=== PATIENT | male | born 1935 | race Caucasian/White ===

== ENCOUNTER 2021-12-08 12:13 | Inpatient (IN) | payer MEDICARE ==
[2021-12-08] VITALS (15 sets, daily range): BP systolic 50–131; BP diastolic 24–59
[~2021-12-08] VITALS: Ht 177.8 cm; Wt 113.4 kg
[~2021-12-08 12:13] MED LIST: AMLO-187 PO; ASPI-886 PO; ATOR40TA59 PO; CLOP75TA PO; GLIP10TA13 PO; LISI10TA16 PO; LISI1TAB37 PO; MELA3CAP2 PO; METF10007 PO; METO-247 PO; OMEG-152 PO; PIOG45TA40 PO
[2021-12-08 12:26] LABS: BASE EXCESS ABG 2 mmol/L (-3-3); CORRECTED PCO2 ABG 100 mmHg; CORRECTED PH ABG 7.15; CORRECTED PO2 ABG 116 mmHg; HCO3 ABG 33 mmol/L (21-28); PO2 ABG 105 mmHg (65-108); SAT O2 ABG 96 % (92-99)
[2021-12-08 12:28] LABS: FIO2 ABG 100/ 15L NRB; PCO2 ABG 92 mmHg (35-46)
[2021-12-08] MEDS ORDERED: IV NORMAL SALINE 1000ML BAG 1,000 ML IV ONE ×2 (12:30→16:30)
[2021-12-08] MEDS ORDERED: ACETAMINOPHEN 650 MG SUPP.RECT. PR ONE (12:30)
--- NOTE | 2021-12-08 12:36 | ED.ADGEN ---
Past Medical History Additional Past Medical Histor: patient unable to state, no paperwork from facility Past Surgical History: Other Additional Past Surgical Histo: unknown Smoking Status: Unknown if ever smoked Alcohol Use: None General Adult EDM: Chief Complaint: DYSPNEA/RESPIRATORY DISTRESS HPI: HPI: Patient is a 86 year old male coming in from nursing facility for altered mental status and shortness of breath. Patient was found to be 84% on nasal cannula. Patient was placed on nonrebreather with improvement of oxygen saturation 90% by EMS. Patient has a history of recent hospitalization for pneumonia. Per records review he is getting cefazolin through a PICC line. Report states that patient has had increasing altered mental status over the past week and family is currently evaluating the possibility of putting him on hospice. Patient is a DNR/DNI. History limited to reports provided due to patient's mental status Review of Systems: Review of Systems: All other systems within normal limits except for as noted in the HPI Current Medications: Current Medications Medications (Trade) Dose Ordered Sig/Argenis Start Time Stop Time Status Last Admin Dose Admin Acetaminophen (Tylenol Supp) 650 mg 1X ONCE 12/08/21 12:30 12/08/21 12:31 DC 12/08/21 12:40 650 MG Acetaminophen (Tylenol) 650 mg PRN Q4HRS PRN 12/08/21 13:45 12/09/21 13:44 Cefepime HCl (Maxipime) 2 gm 1X ONCE 12/08/21 13:30 12/08/21 13:35 DC Heparin Sodium (Porcine) (Heparin Sodium) 2,500 unit PRN Q6HRS PRN 12/08/21 13:45 Heparin Sodium/ Dextrose 250 ml @ 12 mls/hr CONT PRN 12/08/21 13:45 Morphine Sulfate (Morphine Sulfate) 4 mg PRN Q2HR PRN 12/08/21 13:45 12/09/21 13:44 Ondansetron HCl (Zofran) 4 mg PRN Q8HRS PRN 12/08/21 13:45 12/09/21 13:44 Sodium Chloride 1,000 ml @ 75 mls/hr [id number] 12/08/21 13:45 12/09/21 13:44 Vancomycin HCl 2 gm/Sodium Chloride 500 ml @ 250 mls/hr 1X ONCE 12/08/21 13:30 12/08/21 15:29 Allergies: Allergies: Allergies Coded Allergies Type Severity Reaction Last Updated Verified No Known Drug Allergies 11/02/21 No Physical Exam: PE: Constitutional: Well developed, well nourished, ill-appearing HENT: Normocephalic, atraumatic, bilateral external ears normal, nose normal. [] Eyes: PERRLA, conjunctiva normal, no discharge. [] Neck: No rigidity, supple, no stridor. [] Cardiovascular: Regular rate and rhythm, brisk cap refill [] Lungs & Thorax: Non labored symmetric respirations, shallow symmetric respirations, rhonchi and crackles bilaterally, worse on the right Abdomen: Soft, nondistended. Skin: Warm, dry, no erythema, no rash. [] Back: Unremarkable Extremities: No deformities, range of motion grossly intact, no lower extremity edema [] Neurologic: Obtunded Psychologic: Unable to assess Current Patient Data: Labs: Laboratory Tests Test 12/08/21 12:27 12/08/21 12:30 O2 Saturation 96 % (92-99) Arterial Blood pH 7.17 (7.35-7.45) *L Arterial Blood pH (Temp corrected) 7.15 Arterial Blood pCO2 at Patient Temp 92 mmHg (35-46) *H Arterial Blood pCO2 (Temp correct) 100 mmHg Arterial Blood pO2 at Patient Temp 105 mmHg (65-108) Arterial Blood pO2 (Temp corrected) 116 mmHg Arterial Blood HCO3 33 mmol/L (21-28) H Arterial Blood Base Excess 2 mmol/L (-3-3) FiO2 100/ 15l nrb White Blood Count 10.8 x10^3/uL (4.0-11.0) Red Blood Count 3.20 x10^6/uL (4.30-5.70) L Hemoglobin 9.9 g/dL (13.0-17.5) L Hematocrit 31.3 % (39.0-53.0) L Mean Corpuscular Volume 98 fL (79-100) Mean Corpuscular Hemoglobin 31 pg (25-35) Mean Corpuscular Hemoglobin Concent 32 g/dL (31-37) Red Cell Distribution Width 17.8 % (11.5-14.5) H Platelet Count 241 x10^3/uL (140-400) Neutrophils (%) (Auto) 87 % (31-73) H Lymphocytes (%) (Auto) 8 % (24-48) L Monocytes (%) (Auto) 4 % (0-9) Eosinophils (%) (Auto) 0 % (0-3) Basophils (%) (Auto) 1 % (0-3) Neutrophils # (Auto) 9.4 x10^3/uL (1.8-7.7) H Lymphocytes # (Auto) 0.9 x10^3/uL (1.0-4.8) L Monocytes # (Auto) 0.4 x10^3/uL (0.0-1.1) Eosinophils # (Auto) 0.0 x10^3/uL (0.0-0.7) Basophils # (Auto) 0.1 x10^3/uL (0.0-0.2) Platelet Estimate Pending Sodium Level 165 mmol/L (136-145) *H Potassium Level 3.8 mmol/L (3.5-5.1) Chloride Level 120 mmol/L (98-107) H Carbon Dioxide Level 37 mmol/L (21-32) H Anion Gap 8 (6-14) Blood Urea Nitrogen 47 mg/dL (8-26) H Creatinine 0.9 mg/dL (0.7-1.3) Estimated GFR (Cockcroft-Gault) 79.6 BUN/Creatinine Ratio 52 (6-20) H Glucose Level 160 mg/dL (70-99) H Lactic Acid Level 1.3 mmol/L (0.4-2.0) Calcium Level 7.8 mg/dL (8.5-10.1) L Phosphorus Level 4.1 mg/dL (2.6-4.7) Magnesium Level 2.3 mg/dL (1.8-2.4) Total Bilirubin 0.4 mg/dL (0.2-1.0) Aspartate Amino Transferase (AST) 33 U/L (15-37) Alanine Aminotransferase (ALT) 10 U/L (16-63) L Alkaline Phosphatase 130 U/L (46-116) H Troponin I High Sensitivity 1199 ng/L (4-75) H NA-Asx-X-Type Natriuretic Peptide 21622 pg/mL (0-449) H Total Protein 6.0 g/dL (6.4-8.2) L Albumin 1.7 g/dL (3.4-5.0) L Albumin/Globulin Ratio 0.4 (1.0-1.7) L Laboratory Tests 12/08/21 12:30 Laboratory Tests 12/08/21 12:30 Vital Signs: Vital Signs Date Time Temp Pulse Resp B/P (MAP) Pulse Ox O2 Delivery O2 Flow Rate FiO2 12/08/21 12:24 98 BiPAP/CPAP 12/08/21 12:13 100.7 129 32 154/66 (95) 100.7 EKG: EKG: Sinus rhythm, heart rate 130 bpm, right bundle and fascicular blocks, no STEMI criteria met> Significant change from EKG dated 11/05/21 Heart Score: C/O Chest Pain: N/A HEART Score for Chest Pain: HEART Score for Chest Pain Response (Comments) Value History Slighlty/Non-Suspicious 0 ECG Nonspecific Repolarizatio 1 Age > 65 2 Risk Factors >3 Risk Factors or Hx CAD 2 Troponin >3 x Normal Limit 2 Total 7 Risk Factors: Risk Factors: DM, Current or recent (<one month) smoker, HTN, HLP, family history of CAD, obesity. Risk Scores: Score 0 - 3: 2.5% MACE over next 6 weeks - Discharge Home Score 4 - 6: 20.3% MACE over next 6 weeks - Admit for Clinical Observation Score 7 - 10: 72.7% MACE over next 6 weeks - Early Invasive Strategies Radiology/Procedures: Radiology/Procedures: [facility] [address] [place] [address] IMAGING REPORT Signed PATIENT: RAGHAV PAIZ ACCOUNT: [id number] : 1935 LOCATION: ER AGE: 86 SEX: M EXAM STATUS: PRE ER ORD. PHYSICIAN: MARTINE JAVED MD REASON: dypnea, h/o pna PROCEDURE: CHEST AP ONLY EXAMINATION: Chest radiograph. VIEWS: 2 images single AP view of the chest COMPARISON: Chest radiograph and CT from 11/02/2021 INDICATION:86 years, Male, history of pneumonia. FINDINGS: Patient is rotated to the right. Right upper extremity PICC with tip terminating in the SVC. Stable cardiomediastinal silhouette. New hazy right perihilar and basilar opacity with associated air bronchograms. Left basilar opacity is dec reased from prior. No pneumothorax. Bilateral effusions. Similar prominent calcified granulomas within the right hilum. IMPRESSION: 1. Right upper extremity PICC its normal position. 2. New right perihilar and basilar opacities concerning for pneumonia with small layering pleural effusion. 3. left basilar opacity may represent atelectasis or infiltrate with small effusion. Electronically signed by: Selina Vaughn DO (12/08/2021 1:05 PM) [id number] DICTATED and SIGNED BY: SELINA VAUGHN DO DATE: 12/08/21 [id number] [] Course & Med Decision Making: Course & Med Decision Making Pertinent Labs and Imaging studies reviewed. (See chart for details) Patient placed on BiPAP due to poor inspiratory effort and altered mental status. ABG shows a CO2 of 99.5. Has tachycardic with a temperature 101. Patient already on PICC line antibiotics but will cover broad-spectrum for nosocomial acquired pneumonia. NSTEMI likely type II ischemia. Antibiotics and heparin initiate emergency department. Cardiology consulted and admitted to patient's primary care provider Dr. Huber Total critical care time: 45 The time involved in the performance of separately reportable/billable procedures was not counted toward critical care time. Due to a high probability of clinically significant, life-threatening deterioration the patient required a high level of care to intervene emergently and I personally spent this critical time directly and personally managing the patient. The critical care time included obtaining a history, examination of the patient, assessment of vital signs, ordering and review of studies, arran ging urgent treatment with development of a management plan, evaluation of patient's response to treatment, frequent reassessment, and discussions with other providers and/or family members. [] Dragon Disclaimer: Dragon Disclaimer: This electronic medical record was generated, in whole or in part, using a voice recognition dictation system. Departure Departure Impression: Primary Impression: Hypercapnia Additional Impressions: Encephalopathy NSTEMI (non-ST elevated myocardial infarction) Pneumonia Dehydration CHF (congestive heart failure) Disposition: ADMITTED INPATIENT Admitting Physician: Madi. Calvert Condition: CRITICAL Referrals: DAJA HUBER MD (PCP) Problem Qualifiers MARTINE JAVED MD Dec 08, 2021 12:36
[2021-12-08 13:00] LABS: BASO # 0.1 x10^3/uL (0.0-0.2); BASO % 1 % (0-3); EOS % 0 % (0-3); HEMATOCRIT 31.3 % (39.0-53.0); HEMOGLOBIN 9.9 g/dL (13.0-17.5); LYMPH # 0.9 x10^3/uL (1.0-4.8); LYMPH % 8 % (24-48); MEAN CORPUSCULAR HEMOGLOBIN 31 pg (25-35); MEAN CORPUSCULAR HGB CONC 32 g/dL (31-37); MEAN CORPUSCULAR VOLUME 98 fL (79-100); MONO # 0.4 x10^3/uL (0.0-1.1); MONO % 4 % (0-9); NEUT # 9.4 x10^3/uL (1.8-7.7); NEUT % 87 % (31-73); PLATELET COUNT 241 x10^3/uL (140-400); RED CELL DISTRIBUTION WIDTH 17.8 % (11.5-14.5); WHITE BLOOD COUNT 10.8 x10^3/uL (4.0-11.0)
--- NOTE | 2021-12-08 13:08 | RAD ---
EXAMINATION: Chest radiograph. VIEWS: 2 images single AP view of the chest COMPARISON: Chest radiograph and CT from 11/02/2021 INDICATION:86 years, Male, history of pneumonia. FINDINGS: Patient is rotated to the right. Right upper extremity PICC with tip terminating in the SVC. Stable c ardiomediastinal silhouette. New hazy right perihilar and basilar opacity with associated air broncho grams. Left basilar opacity is decreased from prior. No pneumothorax. Bilateral effusions. Similar pr ominent calcified granulomas within the right hilum. IMPRESSION: 1. Right upper extremity PICC its normal position. 2. New right perihilar and basilar opacities concerning for pneumonia with small layering pleural eff usion. 3. left basilar opacity may represent atelectasis or infiltrate with small effusion. Electronically signed by: Mj Vaughn DO (12/08/2021 1:05 PM) [id number]
[2021-12-08] MEDS ORDERED: VANCOMYCIN 2 GM in IV NORMAL SALINE 500ML BAG 500 ML IV ONE (13:30)
[2021-12-08] MEDS ORDERED: CEFEPIME HCL IV Push 2 GM VIAL. IVP ONE (13:30)
[2021-12-08 13:31] LABS: ALBUMIN 1.7 g/dL (3.4-5.0); ALBUMIN/GLOBULIN RATIO 0.4 (1.0-1.7); CALCIUM 7.8 mg/dL (8.5-10.1); CREATININE 0.9 mg/dL (0.7-1.3); GFR 79.6; MAGNESIUM 2.3 mg/dL (1.8-2.4); PHOSPHORUS 4.1 mg/dL (2.6-4.7); POTASSIUM 3.8 mmol/L (3.5-5.1); TOTAL BILIRUBIN 0.4 mg/dL (0.2-1.0)
[2021-12-08] MEDS ORDERED: HEPARIN for IV BOLUS 10,000 UNIT/10 ML VIAL. IV ONE (13:45)
[2021-12-08] MEDS ORDERED: ACETAMINOPHEN 325 MG TABLET. PO PRN (13:45)
[2021-12-08] MEDS ORDERED: MORPHINE SULFATE 4 MG/ML INJ. IVP PRN (13:45)
[2021-12-08] MEDS ORDERED: ONDANSETRON PF 4 MG/2 ML VIAL. IVP PRN (13:45)
[2021-12-08] MEDS ORDERED: HEPARIN for IV BOLUS 10,000 UNIT/10 ML VIAL. IV PRN (13:45)
[2021-12-08 14:04] LABS: BILIRUBIN,URINE NEGATIVE (NEG); CLARITY,URINE CLOUDY; COLOR,URINE AMBER; NITRITE,URINE NEGATIVE (NEG); PH,URINE 5.5 (<5.0-8.0); PROTEIN,URINE 100 mg/dL (NEG-TRACE); UROBILINOGEN,URINE 0.2 mg/dL (0.2 mg/dL)
[2021-12-08 14:11] LABS: AMPHETAMINE/METHAMPHETAMINE NEG (NEG); BARBITURATES NEG (NEG); BENZODIAZEPINES NEG (NEG); CANNABINOIDS NEG (NEG); COCAINE NEG (NEG); METHADONE NEG (NEG); OPIATES NEG (NEG); PHENCYCLIDINE NEG (NEG)
[2021-12-08 14:17] LABS: GRANULAR CASTS,URINE MANY /HPF; HYALINE CASTS, URINE FEW /HPF
[2021-12-08] MEDS: IV NORMAL SALINE 1000ML BAG 1,000 ML IV SCH (14:18)
[2021-12-08 14:20] LABS: BACTERIA,URINE FEW /HPF (0-FEW)
[2021-12-08 14:21] LABS: AMORPHOUS SEDIMENT,UR PRESENT /HPF
[2021-12-08 14:28] LABS: INFLUENZA A PATIENT NEGATIVE (NEGATIVE); INFLUENZA B PATIENT NEGATIVE (NEGATIVE)
[2021-12-08] MEDS: HEPARIN 25,000UTS/250ML PREMIX 250 ML IV PRN (14:30)
--- NOTE | 2021-12-08 14:52 | PDOC2 ---
CONSULT Date of Consult Date of Consult DATE: 12/08/21 TIME: 14:51 Reason for Consult Reason for Consult: Non-STEMI Referring Physician Referring Physician: Dr. Garza Identification/Chief Complaint Chief Complaint Shortness of breath Source Source: Chart review History of Present Illness Reason for Visit: 86-year-old male has been transferred from nursing facility with mental status changes and shortness of breath. He was found to be hypoxic and placed on BiPAP. He was recently treated at [facility] for pneumonia. He was diagnosed with new onset paroxysmal atrial fibrillation at that time and was recommended outpatient event monitor, that he is currently wearing. He also underwent BARBARA at that time for sepsis to rule out endocarditis that showed normal LV systolic function without any intracardiac vegetation. According to family, he has been having progressive mental status changes and they were considering hospice. Per report , he denied any chest pain or syncope. Past Medical History Cardiovascular: AFIB, HTN CENTRAL NERVOUS SYSTEM: CVA, Dementia Hepatobiliary: No pertinent hx Musculoskeletal: Osteoarthritis Endocrine: Diabetes Past Surgical History Past Surgical History: Other Family History Family History: Family History Unknown Social History ALCOHOL: none Lives: [facility] Current Problem List Problem List Problems Medical Problems: (1) CHF (congestive heart failure) Status: Acute (2) Dehydration Status: Acute (3) Encephalopathy Status: Acute (4) Hypercapnia Status: Acute (5) NSTEMI (non-ST elevated myocardial infarction) Status: Acute (6) Pneumonia Status: Acute Current Medications Current Medications Current Medications Sodium Chloride 1,000 ml @ 1,000 mls/hr 1X ONCE IV Last administered on 12/08/21at 12:40; Start 12/08/21 at 12:30; Stop 12/08/21 at 13:29; Status DC Acetaminophen (Tylenol Supp) 650 mg 1X ONCE DC Last administered on 12/08/21at 12:40; Start 12/08/21 at 12:30; Stop 12/08/21 at 12:31; Status DC Vancomycin HCl 2 gm/Sodium Chloride 500 ml @ 250 mls/hr 1X ONCE IV Last administered on 12/08/21at 14:23; Start 12/08/21 at 13:30; Stop 12/08/21 at 15:29 Cefepime HCl (Maxipime) 2 gm 1X ONCE IVP Last administered on 12/08/21at 14:08; Start 12/08/21 at 13:30; Stop 12/08/21 at 13:35; Status DC Heparin Sodium (Porcine) (Heparin Sodium) 4,000 unit 1X ONCE IV Last administered on 12/08/21at 14:26; Start 12/08/21 at 13:45; Stop 12/08/21 at 13:53; Status DC Heparin Sodium/ Dextrose 250 ml @ 12 mls/hr CONT PRN IV PER PROTOCOL Last administered on 12/08/21at 14:30; Start 12/08/21 at 13:45 Heparin Sodium (Porcine) (Heparin Sodium) 2,500 unit PRN Q6HRS PRN IV FOR UFH LEVEL LESS THAN 0.2; Start 12/08/21 at 13:45 Ondansetron HCl (Zofran) 4 mg PRN Q8HRS PRN IVP NAUSEA/VOMITING; Start 12/08/21 at 13:45; Stop 12/09/21 at 13:44 Morphine Sulfate (Morphine Sulfate) 4 mg PRN Q2HR PRN IVP PAIN; Start 12/08/21 at 13:45; Stop 12/09/21 at 13:44 Sodium Chloride 1,000 ml @ 75 mls/hr [id number] IV Last administered on 12/08/21at 14:18; Start 12/08/21 at 13:45; Stop 12/09/21 at 13:44 Acetaminophen (Tylenol) 650 mg PRN Q4HRS PRN PO FEVER > 100.3'F; Start 12/08/21 at 13:45; Stop 12/09/21 at 13:44 Active Scripts Active Metformin Hcl 1,000 Mg Tablet 1,000 Mg PO [id number] 30 Days Aspirin Ec (Aspirin) 81 Mg Tablet.dr 81 Mg PO [id number] 30 Days Lisinopril 10 Mg Tablet 10 Mg PO DAILY 30 Days Reported Actos (Pioglitazone Hcl) 45 Mg Tablet 45 Mg PO QHS Amlodipine Besylate 10 Mg Tablet 10 Mg PO DAILY Metoprolol Succinate ( Xl ) (Metoprolol Succinate) 100 Mg Tab.er.24h 100 Mg PO DAILY Melatonin 3 Mg Capsule 3 Mg PO QHS Glipizide 10 Mg Tablet 20 Mg PO DAILY Fish Oil 1,000 Mg Softgel ([place]-3/Dha/Epa/Fish Oil) 1 Each Capsule 1 Each PO DAILY Atorvastatin Calcium 40 Mg Tablet 40 Mg PO HS Allergies Allergies: Coded Allergies: No Known Drug Allergies (Unverified , 11/02/21) ROS Review of System Full review of systems cannot be obtained since patient is on BiPAP. Physical Exam General: mild distress, Other (On BiPAP) HEENT: Atraumatic Lungs: Other (Bilateral scattered crepitations) Heart: Regular rate Abdomen: Soft Extremities: No edema Vitals VITALS Vital Signs Date Time Temp Pulse Resp B/P (MAP) Pulse Ox O2 Delivery O2 Flow Rate FiO2 12/08/21 12:24 98 BiPAP/CPAP 12/08/21 12:13 100.7 129 32 154/66 (95) 100.7 Labs Labs Laboratory Tests Test 12/08/21 12:27 12/08/21 12:30 12/08/21 13:40 O2 Saturation 96 % (92-99) Arterial Blood pH 7.17 (7.35-7.45) Arterial Blood pH (Temp corrected) 7.15 Arterial Blood pCO2 at Patient Temp 92 mmHg (35-46) Arterial Blood pCO2 (Temp correct) 100 mmHg Arterial Blood pO2 at Patient Temp 105 mmHg (65-108) Arterial Blood pO2 (Temp corrected) 116 mmHg Arterial Blood HCO3 33 mmol/L (21-28) Arterial Blood Base Excess 2 mmol/L (-3-3) FiO2 100/ 15l nrb White Blood Count 10.8 x10^3/uL (4.0-11.0) Red Blood Count 3.20 x10^6/uL (4.30-5.70) Hemoglobin 9.9 g/dL (13.0-17.5) Hematocrit 31.3 % (39.0-53.0) Mean Corpuscular Volume 98 fL (79-100) Mean Corpuscular Hemoglobin 31 pg (25-35) Mean Corpuscular Hemoglobin Concent 32 g/dL (31-37) Red Cell Distribution Width 17.8 % (11.5-14.5) Platelet Count 241 x10^3/uL (140-400) Neutrophils (%) (Auto) 87 % (31-73) Lymphocytes (%) (Auto) 8 % (24-48) Monocytes (%) (Auto) 4 % (0-9) Eosinophils (%) (Auto) 0 % (0-3) Basophils (%) (Auto) 1 % (0-3) Neutrophils # (Auto) 9.4 x10^3/uL (1.8-7.7) Lymphocytes # (Auto) 0.9 x10^3/uL (1.0-4.8) Monocytes # (Auto) 0.4 x10^3/uL (0.0-1.1) Eosinophils # (Auto) 0.0 x10^3/uL (0.0-0.7) Basophils # (Auto) 0.1 x10^3/uL (0.0-0.2) Sodium Level 165 mmol/L (136-145) Potassium Level 3.8 mmol/L (3.5-5.1) Chloride Level 120 mmol/L (98-107) Carbon Dioxide Level 37 mmol/L (21-32) Anion Gap 8 (6-14) Blood Urea Nitrogen 47 mg/dL (8-26) Creatinine 0.9 mg/dL (0.7-1.3) Estimated GFR (Cockcroft-Gault) 79.6 BUN/Creatinine Ratio 52 (6-20) Glucose Level 160 mg/dL (70-99) Lactic Acid Level 1.3 mmol/L (0.4-2.0) Calcium Level 7.8 mg/dL (8.5-10.1) Phosphorus Level 4.1 mg/dL (2.6-4.7) Magnesium Level 2.3 mg/dL (1.8-2.4) Total Bilirubin 0.4 mg/dL (0.2-1.0) Aspartate Amino Transf (AST/SGOT) 33 U/L (15-37) Alanine Aminotransferase (ALT/SGPT) 10 U/L (16-63) Alkaline Phosphatase 130 U/L (46-116) Troponin I High Sensitivity 1199 ng/L (4-75) MP-Ejh-A-Type Natriuretic Peptide 42669 pg/mL (0-449) Total Protein 6.0 g/dL (6.4-8.2) Albumin 1.7 g/dL (3.4-5.0) Albumin/Globulin Ratio 0.4 (1.0-1.7) Urine Color Julianna Urine Clarity Cloudy Urine pH 5.5 (<5.0-8.0) Urine Specific [place] 1.025 (1.000-1.030) Urine Protein 100 mg/dL (NEG-TRACE) Urine Glucose (UA) Negative mg/dL (NEG) Urine Ketones (Stick) Trace mg/dL (NEG) Urine Blood Negative (NEG) Urine Nitrite Negative (NEG) Urine Bilirubin Negative (NEG) Urine Urobilinogen Dipstick 0.2 mg/dL (0.2 mg/dL) Urine Leukocyte Esterase Negative (NEG) Urine RBC 1-2 /HPF (0-2) Urine WBC 5-10 /HPF (0-4) Urine Amorphous Sediment Present /HPF Urine Bacteria Few /HPF (0-FEW) Urine Cellular Casts Mod /HPF Urine Hyaline Casts Few /HPF Urine Granular Casts Many /HPF Urine Opiates Screen Neg (NEG) Urine Methadone Screen Neg (NEG) Urine Barbiturates Neg (NEG) Urine Phencyclidine Screen Neg (NEG) Urine Amphetamine/Methamphetamine Neg (NEG) Urine Benzodiazepines Screen Neg (NEG) Urine Cocaine Screen Neg (NEG) Urine Cannabinoids Screen Neg (NEG) Urine Ethyl Alcohol Neg (NEG) Influenza Type A Antigen Negative (NEGATIVE) Influenza Type B Antigen Negative (NEGATIVE) SARS-CoV-2 Antigen (Rapid) Negative (NEGATIVE) Laboratory Tests Test 12/08/21 12:27 12/08/21 12:30 12/08/21 13:40 O2 Saturation 96 % (92-99) Arterial Blood pH 7.17 (7.35-7.45) Arterial Blood pH (Temp corrected) 7.15 Arterial Blood pCO2 at Patient Temp 92 mmHg (35-46) Arterial Blood pCO2 (Temp correct) 100 mmHg Arterial Blood pO2 at Patient Temp 105 mmHg (65-108) Arterial Blood pO2 (Temp corrected) 116 mmHg Arterial Blood HCO3 33 mmol/L (21-28) Arterial Blood Base Excess 2 mmol/L (-3-3) FiO2 100/ 15l nrb White Blood Count 10.8 x10^3/uL (4.0-11.0) Red Blood Count 3.20 x10^6/uL (4.30-5.70) Hemoglobin 9.9 g/dL (13.0-17.5) Hematocrit 31.3 % (39.0-53.0) Mean Corpuscular Volume 98 fL (79-100) Mean Corpuscular Hemoglobin 31 pg (25-35) Mean Corpuscular Hemoglobin Concent 32 g/dL (31-37) Red Cell Distribution Width 17.8 % (11.5-14.5) Platelet Count 241 x10^3/uL (140-400) Neutrophils (%) (Auto) 87 % (31-73) Lymphocytes (%) (Auto) 8 % (24-48) Monocytes (%) (Auto) 4 % (0-9) Eosinophils (%) (Auto) 0 % (0-3) Basophils (%) (Auto) 1 % (0-3) Neutrophils # (Auto) 9.4 x10^3/uL (1.8-7.7) Lymphocytes # (Auto) 0.9 x10^3/uL (1.0-4.8) Monocytes # (Auto) 0.4 x10^3/uL (0.0-1.1) Eosinophils # (Auto) 0.0 x10^3/uL (0.0-0.7) Basophils # (Auto) 0.1 x10^3/uL (0.0-0.2) Sodium Level 165 mmol/L (136-145) Potassium Level 3.8 mmol/L (3.5-5.1) Chloride Level 120 mmol/L (98-107) Carbon Dioxide Level 37 mmol/L (21-32) Anion Gap 8 (6-14) Blood Urea Nitrogen 47 mg/dL (8-26) Creatinine 0.9 mg/dL (0.7-1.3) Estimated GFR (Cockcroft-Gault) 79.6 BUN/Creatinine Ratio 52 (6-20) Glucose Level 160 mg/dL (70-99) Lactic Acid Level 1.3 mmol/L (0.4-2.0) Calcium Level 7.8 mg/dL (8.5-10.1) Phosphorus Level 4.1 mg/dL (2.6-4.7) Magnesium Level 2.3 mg/dL (1.8-2.4) Total Bilirubin 0.4 mg/dL (0.2-1.0) Aspartate Amino Transf (AST/SGOT) 33 U/L (15-37) Alanine Aminotransferase (ALT/SGPT) 10 U/L (16-63) Alkaline Phosphatase 130 U/L (46-116) Troponin I High Sensitivity 1199 ng/L (4-75) DR-Xod-I-Type Natriuretic Peptide 31768 pg/mL (0-449) Total Protein 6.0 g/dL (6.4-8.2) Albumin 1.7 g/dL (3.4-5.0) Albumin/Globulin Ratio 0.4 (1.0-1.7) Urine Color [place] Urine Clarity Cloudy Urine pH 5.5 (<5.0-8.0) Urine Specific [place] 1.025 (1.000-1.030) Urine Protein 100 mg/dL (NEG-TRACE) Urine Glucose (UA) Negative mg/dL (NEG) Urine Ketones (Stick) Trace mg/dL (NEG) Urine Blood Negative (NEG) Urine Nitrite Negative (NEG) Urine Bilirubin Negative (NEG) Urine Urobilinogen Dipstick 0.2 mg/dL (0.2 mg/dL) Urine Leukocyte Esterase Negative (NEG) Urine RBC 1-2 /HPF (0-2) Urine WBC 5-10 /HPF (0-4) Urine Amorphous Sediment Present /HPF Urine Bacteria Few /HPF (0-FEW) Urine Cellular Casts Mod /HPF Urine Hyaline Casts Few /HPF Urine Granular Casts Many /HPF Urine Opiates Screen Neg (NEG) Urine Methadone Screen Neg (NEG) Urine Barbiturates Neg (NEG) Urine Phencyclidine Screen Neg (NEG) Urine Amphetamine/Methamphetamine Neg (NEG) Urine Benzodiazepines Screen Neg (NEG) Urine Cocaine Screen Neg (NEG) Urine Cannabinoids Screen Neg (NEG) Urine Ethyl Alcohol Neg (NEG) Influenza Type A Antigen Negative (NEGATIVE) Influenza Type B Antigen Negative (NEGATIVE) SARS-CoV-2 Antigen (Rapid) Negative (NEGATIVE) Assessment/Plan Assessment/Plan 1. Non-STEMI, most likely type II/demand ischemia. His troponin level was act ually higher last admission (about 3000). Per family, he did not have any chest pain. Recent BARBARA showed normal LV systolic function without any wall motion abnormalities. Plan conservative management. 2. Acute respiratory failure secondary to pneumonia: Continue intravenous antibiotics 3. Chronic diastolic heart failure: Patient's BNP level is significantly elevated but clinically and based on labs, he appears to be dehydrated. We will hold off on any diuretics at this time. 4. Paroxysmal atrial fibrillation: Presently sinus tachycardia. He is currently wearing event monitor to assess AF burden. We will follow up on the results once completed. He is probably a poor candidate for long-term anticoagulation. 5. Hypertension: Controlled 6. Hyperlipidemia: Continue statin therapy 7. DM2: Treat per IM 8. Dehydration, hyponatremia: Per primary service Thank you for your consultation JUAN PANDYA MD Dec 08, 2021 14:52
[2021-12-08] MEDS ORDERED: LORA2ORA2 PO (16:01)
[2021-12-08] MEDS ORDERED: NOREPINEPHRINE VIAL 8 MG in IV DEXTROSE 5% 250 ML IV PRN (16:15)
[2021-12-08] MEDS ORDERED: PIP/TAZO PER PHARMACY MC PRN (17:15)
[2021-12-08 17:16] LABS: BASE EXCESS ABG 5 mmol/L (-3-3); HCO3 ABG 32 mmol/L (21-28); PO2 ABG 60 mmHg (65-108); SAT O2 ABG 91 % (92-99)
[2021-12-08 17:17] LABS: FIO2 ABG 40/BIPAP; PCO2 ABG 63 mmHg (35-46)
[2021-12-08 17:33] LABS: % LYMPHS 6 % (24-48); % MONOS 8 % (0-10); % SEGS 86 % (35-66); NUCLEATED RBC 2
[2021-12-08 17:35] LABS: TOXIC GRANULATION SLIGHT
[2021-12-08 17:36] LABS: PLT ESTIMATE ADEQUATE (ADEQUATE)
[2021-12-08 17:39] LABS: ANISOCYTOSIS SLIGHT; POLYCHROMASIA SLIGHT
--- NOTE | 2021-12-08 18:00 | HP ---
DATE OF SERVICE: 12/08/2021 ADMIT DATE: 12/08/2021 HISTORY OF PRESENT ILLNESS: The patient is an 86-year-old male patient, resident at [facility] in [place] who was noted by the nursing staff to be hypoxic, short of breath. He was found to be 84% on 4 liters per nasal cannula. He was with altered mental status. He was placed on nonrebreather with improvement in oxygen saturation to 90% by EMS. The patient has a history of recent hospitalization for pneumonia. Per report, he was getting cefazolin 2 grams IV every 8 hours for growth of Staphylococcus lugdunensis. Report stated that the patient has increasing altered mental status over the past week and family is currently evaluating the possibility of putting him on hospice. He is a DNR/DNI. He was extensively investigated in the Emergency Room and has had lab work and imaging studies. His lab work showed that he has severe hypernatremia with a serum sodium of 165, his troponin I high sensitivity is 1199 and his beta natriuretic peptide was 22,777; however, his white cell count was normal, hemoglobin, hematocrit. He has also normochromic normocytic anemia, normal platelet count. Urinalysis showed very few bacteria, 5-10 wbc's. Toxic screen was negative; however, his arterial blood gas showed a pH of 7.17, pCO2 of 92, pO2 of 100, bicarbonate 33 and oxygen saturation was 96% on 100%, 15 liters by nonrebreather mask. His influenza A and B were negative and SARS-CoV-2 antigen rapid negative. His chest x-ray showed that the patient has right upper extremity PICC line with tip terminating in the superior vena cava, stable cardiomediastinal silhouette, new hazy right perihilar and basilar opacities with associated air bronchograms, left basilar opacity is decreased from prior. No pneumothorax, bilateral effusion, similar prominent calcified granulomas within the right hilum. The patient was admitted with altered mental status due to metabolic encephalopathy due to hypernatremia and hypercarbia, has a non-ST segment elevation myocardial infarction. His first set of cardiac enzymes showed troponin I high sensitivity to 1199. His beta natriuretic peptide was high at 22,777. He was started on BiPAP machine and also started on Levophed. We did actually give him a bolus of normal saline, although he was started also on heparin drip for his non-ST segment elevation myocardial infarction as his EKG showed that he was in sinus rhythm with heart rate of 130 beats per minute, right bundle branch and fascicular blocks, no ST segment elevation myocardial infarction criteria met. He was admitted to the ICU, started on IV Levophed and BiPAP machine, started also on vancomycin and Zosyn as he completed about 4 weeks of cefazolin 2 grams IV every 8 hours for his Staphylococcus lugdunensis on his last admission, where he was discharged on 11/10/2021. PAST MEDICAL HISTORY: Significant for hypertension, cerebrovascular accident, dementia, generalized osteoarthritis and diabetes. He has also history of Staphylococcus lugdunensis for which he has a PICC line placed and was treated for a total of 4 weeks with cefazolin 2 grams IV every 8 hours. At that time, he has had transesophageal echocardiogram which showed no evidence of vegetation. PAST SURGICAL HISTORY: Unremarkable. FAMILY HISTORY: Noncontributory. SOCIAL HISTORY: He is currently residing at [facility]. He does not smoke, drink alcohol or recreational drugs. ALLERGIES: He has no known drug allergies. MEDICATIONS: He is currently on the following medications: He is on atorvastatin 40 mg at bedtime, metoprolol succinate 100 mg daily, amlodipine 10 mg once a day, lisinopril 10 mg once a day, aspirin 81 mg once a day, lorazepam 2 mg per 1 mL oral concentrate every 4 hours, metformin 1000 mg daily and glipizide 20 mg daily, pioglitazone 45 mg at bedtime and melatonin 3 mg at bedtime. He was also on cefazolin 2 grams IV every 8 hours for 4 weeks. He is on a pureed diet, nectar thickened liquid. REVIEW OF SYSTEMS: Unobtainable. The patient is extremely encephalopathic. PHYSICAL EXAMINATION: GENERAL: On arrival to the Emergency Room, the patient was very lethargic, tachypneic, tachycardic, afebrile. He was also pale, but no jaundice, cyanosis, no lymphadenopathy, no thyromegaly, no jugular venous distention, but generalized anasarca. VITAL SIGNS: His heart rate was 129, blood pressure was 154/66, temperature was 100.7, respiratory rate was 32 and oxygen saturation was 98% on BiPAP machine. HEAD, EYES, EARS, NOSE, AND THROAT: Normocephalic, atraumatic. NECK: Supple. HEART: Showed normal first and second heart sounds. No gallop, rub or murmur. CHEST: Shows central trachea, equal bilateral chest expansion, air entry, vesicular breath sounds. No crepitation or rhonchi. ABDOMEN: Distended, soft, nontender. NEUROLOGIC: He is encephalopathic. LABORATORY DATA: His lab work on arrival showed a white cell count 15,800, hemoglobin 10, hematocrit 31, MCV 98 and platelet count of 241,000 with a manual differential showed 87% polymorphs, 8% lymphocytes, 4% monocytes. His chemistry showed a serum sodium 165, potassium 3.8, chloride 120, bicarbonate 37, anion gap of 8, BUN 47, creatinine 0.9. Estimated GFR was 79 mL per minute. His glucose 160, lactic acid was only 1.3, calcium was 7.8, phosphorus 4.1, magnesium was 2.3. Total bilirubin, AST, ALT were normal. Alkaline phosphatase slightly elevated. His troponin I high sensitivity is 1199, beta natriuretic peptide was 22,777. Total protein was 6, albumin was 1.7. His urinalysis showed the urine was cloudy with a pH of 5.5, specific gravity 1.025, small amount of protein. The urine was negative for glucose, trace ketones, negative for blood, nitrite and bilirubin as well as leukocyte esterase. There are 1-2 rbc's, 5-10 wbc's, very few bacteria. His urine toxic screen was essentially negative and his arterial blood gases on admission showed a pH of 7.17, pCO2 of 92, PO2 105, bicarbonate 33 and his oxygen saturation was 96% on FiO2 of 100% on 15 liters by nonrebreather mask. His repeat arterial blood gases after 4 hours on BiPAP machine showed his pH has risen to 7.32, pCO2 down to 53, pO2 of 60, bicarbonate 32 and oxygen saturation was 91% on FiO2 of 40% on BiPAP and his chest x-ray showed that the patient has right upper extremity PICC line with the tip terminating at the superior vena cava, stable cardiomediastinal silhouette, new hazy right perihilar and basilar opacity with associated air bronchograms, left basilar opacities decreased from prior. No pneumothorax, bilateral effusion, similar prominent calcified granuloma within the right hilum. ASSESSMENT AND PLAN: 1. The patient was admitted with metabolic encephalopathy due to severe hypernatremia. Serum sodium 165. 2. Hypercarbia with pCO2 of 92 mmHg. He has non-ST segment elevation myocardial infarction. His EKG showed that he was in sinus tachycardia with evidence of right bundle branch block and fascicular block with no evidence of ST segment elevation. 3. Congestive heart failure as his beta natriuretic peptide was extremely high, 22,777. He has a right lower lobe pneumonia, likely aspiration pneumonia. Other medical problems include atrial fibrillation as well as hypertension, generalized osteoarthritis, type 2 diabetes, questionable CVA and dementia. I have discontinued his cefazolin and continue to start him on vancomycin and Zosyn for healthcare-associated pneumonia. We will continue with Levophed. We will do two more sets of cardiac enzyme and repeat his electrolytes and start him on D5W to correct his hypernatremia. His overall prognosis is extremely poor. We will discuss this finding with his daughter and as there was discussion with possible hospice care before, but the daughter wanted to continue aggressive care, although he was a DNR/DNI. I have consulted the barrel rifler operator and Infectious Disease specialist as well as the welder apprentice arc. GEOVANNI DR: Deepthi TID: [id number]
[2021-12-08 19:17] LABS: CALCIUM 7.2 mg/dL (8.5-10.1); GFR 70.5; POTASSIUM 3.5 mmol/L (3.5-5.1)
--- NOTE | 2021-12-08 19:20 | NUR ---
Patient admitted from ER at 1545. Patient upon admission appears obtunded and non-responsive. Patient placed on BIPAP for respiratory support. Family notified of pt transfer.
[2021-12-08] MEDS: PIPERACILLIN/TAZOBACTAM 4.5 GM in IV DEXTROSE 5% 100ML 100 ML IV SCH (19:39)
[2021-12-09] VITALS (24 sets, daily range): BP systolic 87–153; BP diastolic 33–62
[2021-12-09] MEDS: PIPERACILLIN/TAZOBACTAM 4.5 GM in IV DEXTROSE 5% 100ML 100 ML IV SCH ×5 (00:05→23:35)
[2021-12-09] MEDS: IV NORMAL SALINE 1000ML BAG 1,000 ML IV SCH (03:05)
[2021-12-09 06:44] LABS: BASO # 0.1 x10^3/uL (0.0-0.2); BASO % 1 % (0-3); EOS # 0.1 x10^3/uL (0.0-0.7); EOS % 0 % (0-3); HEMATOCRIT 29.3 % (39.0-53.0); HEMOGLOBIN 9.1 g/dL (13.0-17.5); LYMPH # 1.5 x10^3/uL (1.0-4.8); LYMPH % 12 % (24-48); MEAN CORPUSCULAR HEMOGLOBIN 31 pg (25-35); MEAN CORPUSCULAR HGB CONC 31 g/dL (31-37); MEAN CORPUSCULAR VOLUME 98 fL (79-100); MONO # 1.1 x10^3/uL (0.0-1.1); MONO % 9 % (0-9); NEUT # 10.2 x10^3/uL (1.8-7.7); NEUT % 78 % (31-73); PLATELET COUNT 209 x10^3/uL (140-400); RED CELL DISTRIBUTION WIDTH 17.8 % (11.5-14.5)
[2021-12-09 07:09] LABS: ALBUMIN 1.5 g/dL (3.4-5.0); ALBUMIN/GLOBULIN RATIO 0.4 (1.0-1.7); CALCIUM 7.3 mg/dL (8.5-10.1); CREATININE 1.3 mg/dL (0.7-1.3); GFR 52.1; POTASSIUM 3.2 mmol/L (3.5-5.1); TOTAL BILIRUBIN 0.5 mg/dL (0.2-1.0); TOTAL PROTEIN 5.4 g/dL (6.4-8.2)
--- NOTE | 2021-12-09 07:44 | CONS ---
DATE OF CONSULTATION: 12/09/2021 REASON FOR CONSULTATION: I was asked to see this 86-year-old gentleman for acute on chronic respiratory failure. HISTORY OF PRESENT ILLNESS: The patient is currently on the BiPAP and is not responsive, does not answer my questions or follow commands. He is DNR/DNI. All of the information was obtained from chart and nursing staff. He was admitted with diagnosis of acute respiratory failure, pneumonia and sepsis with Staphylococcus lugdunensis. He was discharged to [facility]. He has been hypoxic and has had altered mental status, was brought to the Emergency Room. He is DNR/DNI. He is on BiPAP and not responsive. Family is thinking of hospice care. His high sensitivity troponin is elevated. He is on heparin drip. He has history of CVA and dysphagia. PAST MEDICAL HISTORY: CVA, dysphagia, hypertension, dementia, history of Staphylococcus lugdunensis sepsis and pneumonia. He was sent to [facility] with a PICC line and treated with cefazolin. Transesophageal echo did not show vegetation. Obesity, diabetes mellitus, chronic diastolic congestive heart failure, paroxysmal atrial fibrillation. ALLERGIES: No known drug allergies. MEDICATIONS: Currently, he is on Zosyn, epinephrine, heparin drip. SOCIAL HISTORY: [facility] resident per chart, does not smoke or drink. FAMILY HISTORY: Unable to obtain. The patient does not answer questions. REVIEW OF SYSTEMS: As mentioned as above. I have discussed the patient with RN. Other systems otherwise negative. PHYSICAL EXAMINATION: GENERAL: This is an overweight gentleman. VITAL SIGNS: His O2 saturation on BiPAP of 18/6, FiO2 of 100%, respiratory rate of 20, heart rate 64, blood pressure 140/43, temperature 98.9. HEENT: Normocephalic, atraumatic. Pupils are equal, not reactive to light. He has a BiPAP mask on. NECK: Short, thick. No lymphadenopathy or thyromegaly. CARDIOVASCULAR: Regular rate and rhythm. CHEST: Inspection is normal. LUNGS: There are bibasilar crackles, dullness at the bases. ABDOMEN: Soft and obese. Bowel sounds are good. EXTREMITIES: There is edema. LYMPHATICS: There is no lymphadenopathy. NEUROLOGIC: He does not follow commands. He moves all extremities. LABORATORY DATA: I reviewed the following lab data: Sodium on admission 165, this morning is 159, potassium 3.5, chloride 118, CO2 of 32, BUN 48, creatinine 1. Lactic acid 1.3. Troponin 1199, repeat 1535, repeat 2073. BNP 22,777, AST 33, ALT 10, alk phos 130, total bilirubin 0.4, albumin 1.7. WBC 10.8, hemoglobin 9.9, platelet 241. Urine drug screen negative. Influenza A and B and COVID-19 negative. Chest x-ray shows bilateral infiltrate, effusion, atelectasis. ABG yesterday at 12:07, pH 7.17, pCO2 of 92, pO2 of 100. On nonrebreather mask on BiPAP, repeat ABG at 17:00, pH 7.32, pCO2 of 63, pO2 of 60. IMPRESSION: 1. Acute hypoxemic hypercarbic respiratory failure secondary to aspiration pneumonia and acute on chronic diastolic congestive heart failure and non-ST elevation myocardial infarction. 2. Abnormal chest x-ray. 3. Aspiration pneumonia. 4. Acute on chronic diastolic dysfunction. 5. Hypernatremia. 6. Dehydration. 7. Dysphagia. 8. Paroxysmal atrial fibrillation. 9. Non-ST elevation myocardial infarction. 10. Diabetes mellitus. 11. History of hypertension. 12. Hypotension, sepsis. PLAN AND RECOMMENDATIONS: 1. Titrate FiO2 to keep O2 saturation 90%. Avoid hyperoxygenation. 2. Elevate head of bed. 3. Continue BiPAP. The patient is DNI/DNR. 4. Continue Zosyn. 5. Continue heparin per Cardiology. 6. Epinephrine per Cardiology. Titrate to keep MAP 60. 7. Decreased D5W to 75 mL per hour. 8. Add Pepcid for stress ulcer prophylaxis. 9. Overall, prognosis is poor. 10. The findings and recommendations were discussed with RN. Thank you very much for allowing me to participate in care of this very nice gentleman. JAKI DR: Deigo TID: [id number]
[2021-12-09] MEDS ORDERED: FAMOTIDINE 20 MG/2 ML VIAL IVP SCH (09:00)
[2021-12-09] MEDS: IV DEXTROSE 5% 1,000 ML IV SCH ×3 (09:17→21:38)
[2021-12-09] MEDS: HEPARIN 25,000UTS/250ML PREMIX 250 ML IV PRN (11:38)
[2021-12-09] MEDS ORDERED: IV DEXTROSE 5% 250 ML BAG. IV PRN (11:45)
[2021-12-09] MEDS ORDERED: DEXTROSE 50% 25 GM / 50ML DISP.SYRIN. IV PRN (11:45)
[2021-12-09 11:46] LABS: BASE EXCESS ABG 4 mmol/L (-3-3); HCO3 ABG 28 mmol/L (21-28); PCO2 ABG 40 mmHg (35-46); PO2 ABG 93 mmHg (65-108); SAT O2 ABG 97 % (92-99)
[2021-12-09 11:47] LABS: FIO2 ABG 40% BIPAP
[2021-12-09] MEDS: INSULIN LISPRO 300 UNITS/3 ML VIAL. SQ SCH ×2 (12:06→17:45)
--- NOTE | 2021-12-09 14:00 | PDOC ---
PROGRESS NOTES Date of Service: DATE: 12/09/21 TIME: 13:56 Subjective Subjective Slightly more alert, opening eyes to commands, continues to need BiPAP Objective Objective Vital Signs Date Time Temp Pulse Resp B/P (MAP) Pulse Ox O2 Delivery O2 Flow Rate FiO2 12/09/21 13:00 53 21 118/42 100 BiPAP/CPAP 12/09/21 12:00 98.4 98.4 Intake and Output 12/09/21 07:00 Intake Total 1669 ml Output Total 305 ml Balance 1364 ml Intake IV Total 1669 ml Output Urine Total 305 ml Physical Exam Abdomen: Soft Heart: Regular rate Extremities: Other (Trace edema with hyperpigmentation) General: mild distress, Other (On BiPAP) HEENT: Atraumatic Lungs: Other (Bilateral scattered crepitations) Neck: Supple Assessment Assessment 1. Non-STEMI, most likely type II/demand ischemia. His troponin level was actually higher last admission (about 3000). Per family, he did not have any chest pain. Recent BARBARA showed normal LV systolic function without any wall motion abnormalities. Plan conservative management. 2. Acute respiratory failure secondary to aspiration pneumonia: Needing BiPAP, continue intravenous antibiotics. Pulmonary team following. 3. Chronic diastolic heart failure: Patient's BNP level is significantly elevated but clinically and based on labs, he appears to be dehydrated. We will hold off on any diuretics at this time. 4. Paroxysmal atrial fibrillation: Presently sinus tachycardia. He is currently wearing event monitor to assess AF burden. We will follow up on the results once completed. He is probably a poor candidate for long-term anticoagulation. 5. Hypertension: Patient presented needing pressor support 6. Hyperlipidemia: Continue statin therapy 7. DM2: Treat per IM 8. Dehydration, hyponatremia: Per primary service Plan Plan of Care Problems Medical Problems: (1) CHF (congestive heart failure) Status: Acute (2) Dehydration Status: Acute (3) Encephalopathy Status: Acute (4) Hypercapnia Status: Acute (5) NSTEMI (non-ST elevated myocardial infarction) Status: Acute (6) Pneumonia Status: Acute Comment Review of Relevant I have reviewed the following items marcelino (where applicable) has been applied. Labs Laboratory Tests Test 12/08/21 17:07 12/08/21 18:50 12/08/21 21:20 12/09/21 02:00 O2 Saturation 91 % (92-99) Arterial Blood pH 7.32 (7.35-7.45) Arterial Blood pCO2 at Patient Temp 63 mmHg (35-46) Arterial Blood pO2 at Patient Temp 60 mmHg (65-108) Arterial Blood HCO3 32 mmol/L (21-28) Arterial Blood Base Excess 5 mmol/L (-3-3) FiO2 40/bipap Sodium Level 159 mmol/L (136-145) Potassium Level 3.5 mmol/L (3.5-5.1) Chloride Level 118 mmol/L (98-107) Carbon Dioxide Level 32 mmol/L (21-32) Anion Gap 9 (6-14) Blood Urea Nitrogen 48 mg/dL (8-26) Creatinine 1.0 mg/dL (0.7-1.3) Estimated GFR (Cockcroft-Gault) 70.5 Glucose Level 299 mg/dL (70-99) Calcium Level 7.2 mg/dL (8.5-10.1) Troponin I High Sensitivity 1535 ng/L (4-75) 2073 ng/L (4-75) Heparin Anti-Xa Act, Unfractionated 0.66 IU/mL (0.30-0.70) Test 12/09/21 06:35 12/09/21 11:20 12/09/21 11:30 12/09/21 11:57 White Blood Count 13.0 x10^3/uL (4.0-11.0) Red Blood Count 3.00 x10^6/uL (4.30-5.70) Hemoglobin 9.1 g/dL (13.0-17.5) Hematocrit 29.3 % (39.0-53.0) Mean Corpuscular Volume 98 fL (79-100) Mean Corpuscular Hemoglobin 31 pg (25-35) Mean Corpuscular Hemoglobin Concent 31 g/dL (31-37) Red Cell Distribution Width 17.8 % (11.5-14.5) Platelet Count 209 x10^3/uL (140-400) Neutrophils (%) (Auto) 78 % (31-73) Lymphocytes (%) (Auto) 12 % (24-48) Monocytes (%) (Auto) 9 % (0-9) Eosinophils (%) (Auto) 0 % (0-3) Basophils (%) (Auto) 1 % (0-3) Neutrophils # (Auto) 10.2 x10^3/uL (1.8-7.7) Lymphocytes # (Auto) 1.5 x10^3/uL (1.0-4.8) Monocytes # (Auto) 1.1 x10^3/uL (0.0-1.1) Eosinophils # (Auto) 0.1 x10^3/uL (0.0-0.7) Basophils # (Auto) 0.1 x10^3/uL (0.0-0.2) Sodium Level 157 mmol/L (136-145) Potassium Level 3.2 mmol/L (3.5-5.1) Chloride Level 117 mmol/L (98-107) Carbon Dioxide Level 31 mmol/L (21-32) Anion Gap 9 (6-14) Blood Urea Nitrogen 55 mg/dL (8-26) Creatinine 1.3 mg/dL (0.7-1.3) Estimated GFR (Cockcroft-Gault) 52.1 BUN/Creatinine Ratio 42 (6-20) Glucose Level 261 mg/dL (70-99) Calcium Level 7.3 mg/dL (8.5-10.1) Total Bilirubin 0.5 mg/dL (0.2-1.0) Aspartate Amino Transf (AST/SGOT) 35 U/L (15-37) Alanine Aminotransferase (ALT/SGPT) 8 U/L (16-63) Alkaline Phosphatase 114 U/L (46-116) GX-Aox-Z-Type Natriuretic Peptide 07802 pg/mL (0-449) Total Protein 5.4 g/dL (6.4-8.2) Albumin 1.5 g/dL (3.4-5.0) Albumin/Globulin Ratio 0.4 (1.0-1.7) O2 Saturation 97 % (92-99) Arterial Blood pH 7.46 (7.35-7.45) Arterial Blood pCO2 at Patient Temp 40 mmHg (35-46) Arterial Blood pO2 at Patient Temp 93 mmHg (65-108) Arterial Blood HCO3 28 mmol/L (21-28) Arterial Blood Base Excess 4 mmol/L (-3-3) FiO2 40% bipap Heparin Anti-Xa Act, Unfractionated > 1.10 IU/mL (0.30-0.70) Glucose (Fingerstick) 209 mg/dL (70-99) Microbiology 12/08/21 Blood Culture - Preliminary, Resulted NO GROWTH AFTER 1 DAY Medications Current Medications Dextrose 1,000 ml @ 100 mls/hr Q10H IV Last administered on 12/09/21at 09:17; Start 12/09/21 at 00:00 Dextrose (Dextrose 50%-Water Syringe) 12.5 gm PRN Q15MIN PRN IV SEE COMMENTS; Start 12/09/21 at 11:45 Dextrose (Iv Dextrose 5%) 250 ml PRN Q15MIN PRN IV SEE COMMENTS; Start 12/09/21 at 11:45 Famotidine (Pepcid Vial) 20 mg BID IVP Last administered on 12/09/21at 09:00; Start 12/09/21 at 09:00; Stop 12/09/21 at 12:18; Status DC Famotidine (Pepcid Vial) 20 mg DAILY IVP ; Start 12/10/21 at 09:00 Insulin Human Lispro (HumaLOG) 0-9 UNITS Q6HRS SQ Last administered on 12/09/21at 12:06; Start 12/09/21 at 12:00 Norepinephrine Bitartrate 8 mg/ Dextrose 258 ml @ 19.35 mls/ hr CONT PRN IV PER PROTOCOL Last administered on 12/09/21at 02:13; Start 12/08/21 at 16:15 Piperacillin Sod/ Tazobactam Sod (Zosyn Per Pharmacy) 1 each PRN DAILY PRN [facility] SEE COMMENTS; Start 12/08/21 at 17:15 Piperacillin Sod/ Tazobactam Sod 4.5 gm/Dextrose 100 ml @ 200 mls/hr Q6HRS IV Last administered on 12/09/21at 11:53; Start 12/08/21 at 18:00 Sodium Chloride 1,000 ml @ 1,000 mls/hr 1X ONCE IV Last administered on 12/08/21at 17:49; Start 12/08/21 at 16:30; Stop 12/09/21 at 05:51; Status DC Vitals/I & O Vital Sign - Last 24 Hours 12/08/21 12/08/21 12/08/21 12/08/21 14:07 14:10 14:40 14:53 Pulse 126 126 126 Resp 27 26 25 B/P (MAP) 152/65 (94) 146/67 (93) 141/64 (89) Pulse Ox 96 96 99 97 O2 Delivery BiPAP/CPAP BiPAP/CPAP BiPAP/CPAP BiPAP/CPAP 12/08/21 12/08/21 12/08/21 12/08/21 15:10 15:45 16:00 16:00 Temp 98.7 98.7 98.7 98.7 Pulse 124 118 90 Resp 26 20 20 B/P (MAP) 128/61 (83) 129/58 (81) 61/25 Pulse Ox 99 94 94 O2 Delivery BiPAP/CPAP BiPAP/CPAP BiPAP/CPAP Mechanical Ventilator 12/08/21 12/08/21 12/08/21 12/08/21 16:02 16:15 16:30 16:45 Pulse 86 82 84 Resp 20 20 20 B/P (MAP) 50/24 127/51 117/33 Pulse Ox 94 94 93 100 O2 Delivery BiPAP/CPAP BiPAP/CPAP BiPAP/CPAP BiPAP/CPAP 12/08/21 12/08/21 12/08/21 12/08/21 17:00 17:12 17:30 17:45 Pulse 82 76 76 Resp 20 20 20 B/P (MAP) 86/36 126/53 121/59 Pulse Ox 100 94 100 100 O2 Delivery BiPAP/CPAP BiPAP/CPAP BiPAP/CPAP BiPAP/CPAP 12/08/21 12/08/21 12/08/21 12/08/21 18:00 18:15 19:00 20:00 Temp 98.9 98.9 Pulse 69 68 70 Resp 20 20 20 B/P (MAP) 112/32 112/43 112/32 124/36 Pulse Ox 100 100 100 O2 Delivery BiPAP/CPAP BiPAP/CPAP BiPAP/CPAP 12/08/21 12/08/21 12/08/21 12/08/21 20:00 20:17 21:00 22:00 Pulse 70 72 Resp 20 20 B/P (MAP) 115/44 131/50 Pulse Ox 100 100 100 O2 Delivery Mechanical Ventilator BiPAP/CPAP BiPAP/CPAP BiPAP/CPAP 12/08/21 12/09/21 12/09/21 12/09/21 23:00 00:00 00:00 00:05 Temp 98.9 98.9 Pulse 54 82 Resp 20 20 B/P (MAP) 126/54 153/56 Pulse Ox 100 100 100 O2 Delivery BiPAP/CPAP Mechanical Ventilator BiPAP/CPAP BiPAP/CPAP 12/09/21 12/09/21 12/09/21 12/09/21 01:00 02:00 03:00 04:00 Temp 98.4 98.4 Pulse 52 68 64 62 Resp 20 20 20 20 B/P (MAP) 120/50 138/46 140/43 144/43 Pulse Ox 100 100 100 100 O2 Delivery BiPAP/CPAP BiPAP/CPAP BiPAP/CPAP BiPAP/CPAP 12/09/21 12/09/21 12/09/21 12/09/21 04:00 04:15 05:00 06:00 Pulse 50 64 Resp 20 20 B/P (MAP) 137/53 136/36 Pulse Ox 100 100 100 O2 Delivery Mechanical Ventilator BiPAP/CPAP BiPAP/CPAP BiPAP/CPAP 12/09/21 12/09/21 12/09/21 12/09/21 07:00 07:57 08:00 08:00 Temp 98.4 98.4 Pulse 56 58 Resp 22 B/P (MAP) 149/48 144/53 Pulse Ox 100 100 100 O2 Delivery BiPAP/CPAP BiPAP/CPAP BiPAP/CPAP Mechanical Ventilator 12/09/21 12/09/21 12/09/21 12/09/21 09:00 09:10 10:00 11:00 Pulse 56 56 63 Resp 20 23 B/P (MAP) 147/37 145/50 127/46 Pulse Ox 100 100 100 100 O2 Delivery BiPAP/CPAP BiPAP/CPAP BiPAP/CPAP BiPAP/CPAP 12/09/21 12/09/21 12/09/21 12/09/21 11:24 12:00 12:00 13:00 Temp 98.4 98.4 Pulse 61 53 Resp 23 21 B/P (MAP) 121/44 118/42 Pulse Ox 100 100 100 O2 Delivery BiPAP/CPAP BiPAP/CPAP Mechanical Ventilator BiPAP/CPAP Intake and Output 12/08/21 12/08/21 12/09/21 15:00 23:00 07:00 Intake Total 1000 ml 669 ml Output Total 160 ml 145 ml Balance 1000 ml -160 ml 524 ml JUAN PANDYA MD Dec 09, 2021 14:00
--- NOTE | 2021-12-09 16:14 | RAD ---
EXAM: CHEST ONE VIEW. HISTORY: Worsening congestive heart failure. COMPARISON: 12/08/2021. FINDINGS: A frontal view of the chest is obtained. A right arm PICC line has its tip in the superior vena cava. Interstitial opacities in the bases are consistent with atelectasis and mild pulmonary edema. These a ppear improved. Small bilateral pleural effusions appear improved. There is a calcified granuloma in the right upper lobe. There is no pneumothorax. The heart is mildly enlarged. Calcified lymph nodes l ikely reflect old granulomatous disease. There are atherosclerotic calcifications of the aorta. IMPRESSION: 1. Small pleural effusions and mild pulmonary edema appear improved. Electronically signed by: Moris Cornejo MD (12/09/2021 4:12 PM) [id number]
--- NOTE | 2021-12-09 16:26 | CONS ---
DATE OF CONSULTATION: 12/09/2021 REQUESTING PHYSICIAN: Nehal Huber MD REASON FOR CONSULTATION: Antibiotic management. HISTORY OF PRESENT ILLNESS: This is an 86-year-old gentleman. In October, the patient had Staph lugdunensis infection. The patient had been on cefazolin in a nursing facility where he had altered mental status and shortness of breath with hypoxia. Hence, the patient was transferred. Apparently, the patient had been hospice there, but the family changed and they wanted to be evaluated and treated, although continued DNR/DNI. The patient is not able to provide any information. The patient is somnolent. He opens eyes. No other communication possible. The patient had been on small dose of vasopressor support here. White count up to 13,000. BUN and creatinine 55 and 1.3. BNP was 29,000. Sodium was 165. The patient again not able to provide any information. PAST MEDICAL HISTORY: Positive for hypertension, CVA, dementia, osteoarthritis, staphylococcal lugdunensis bacteremia. SOCIAL HISTORY: Negative for smoking, alcohol, illicit drug use. ALLERGIES: No known drug allergies. CURRENT MEDICATIONS: Now, the patient has been put on vancomycin and Zosyn. REVIEW OF SYSTEMS: As in HPI. All other systems reviewed and are negative. PHYSICAL EXAMINATION: GENERAL: The patient is arousable gentleman, not in any distress. VITAL SIGNS: Stable, afebrile, temperature 98.4, pulse 50, respirations 20, blood pressure 149/48. HEENT: Both pupils are round and reacting. No conjunctival lesion. No lesion in the mouth. NECK: Supple, no JVP, no lymphadenopathy. LUNGS: Clear. HEART: S1, S2, regular. ABDOMEN: Soft, nontender. No organomegaly. EXTREMITIES: Bruising present. There are no signs of infection. No other significant skin breakdown. NEUROLOGIC: The patient opens eyes only, does not verbalize, and does not follow command. LABORATORY AND DIAGNOSTIC DATA: White count is 13,000. BUN and creatinine is 55 and 1.3. Chest x-ray showed right perihilar and basilar opacity, pleural effusion and left basilar opacity. IMPRESSION: 1. Hypoxic respiratory failure. 2. Encephalopathy. 3. Recent staphylococcal lugdunensis bacteremia. 4. Dehydration with hypernatremia. 5. Prerenal azotemia. RECOMMENDATIONS: I would continue Zosyn, discontinue vancomycin. Supportive care. We will check the cultures and continue to follow. Overall, prognosis is poor. Thank you very much, Dr. Huber, for giving me opportunity to participate in this patient's care. STAR/PHILLIP/ISAIAH MACIAS: STAR/johanne TID: [id number]
--- NOTE | 2021-12-09 17:30 | PN ---
DATE: 12/09/2021 SUBJECTIVE: The patient continued to be encephalopathic, although the nursing staff stated that he attempts to open his eyes and also pull things. He continued to be on BiPAP machine, maintaining his oxygen saturation at 100% on FiO2 of 30%. OBJECTIVE: GENERAL: On examining him, he was pale, but not jaundiced or cyanosed, no lymphadenopathy, no thyromegaly, no jugular venous distention. No lower limb edema. VITAL SIGNS: His heart rate was 56, blood pressure was 145/50, temperature was 98.4, respiratory rate was 23 and oxygen saturation was 100% on FiO2 of 30%. HEAD, EYES, EARS, NOSE, AND THROAT: Normocephalic, atraumatic. NECK: Supple. HEART: Showed normal first and second heart sounds. No gallop or murmur. CHEST: Shows central trachea, equal bilateral expansion, air entry, vesicular breath sounds. I could not appreciate any crepitation or rhonchi anteriorly. ABDOMEN: Distended, soft, nontender. NEUROLOGIC: He is encephalopathic. His intake over the last 24 hours and output incompletely recorded. LABORATORY DATA: His lab work this morning showed white cell count up to 13,000, hemoglobin 9, hematocrit 29, MCV 98, platelet count 109,000. His chemistry showed his serum sodium is down to 157, potassium 3.2, chloride 117, bicarbonate 31, anion gap of 9, BUN 55, creatinine 1.3. Estimated GFR was 52 mL per minute. His glucose was 261, calcium was 7.3. Total bilirubin, AST, ALT, alkaline phosphatase were normal. His second troponin was 2073. His beta natriuretic peptide was higher at 229,173 and his total protein 5.5, albumin was 1.5. His is on heparin drip. His urinalysis is essentially unremarkable and toxic screen was negative. ASSESSMENT AND PLAN: In summary, this is an 86-year-old male patient who was admitted with altered mental status due to metabolic encephalopathy secondary to severe hypernatremia with a serum sodium on admission of 165 mEq per liter. He has also acute on chronic hypoxic hypercapnic respiratory failure. His pCO2 on admission was 92 mmHg. He has also non-ST segment elevation myocardial infarction, congestive heart failure probably due to non-ST segment elevation myocardial infarction, has also pneumonia. He has multiple underlying medical problems including hypertension, type 2 diabetes mellitus. He has also history of Staphylococcus lugdunensis bacteremia, treated with cefazolin 2 grams IV q.8 hourly for almost 4 weeks. He is DNR/DNI and given all these comorbidities, his prognosis is extremely poor. We did discuss the option of hospice care before with his daughter on his last admission but she continued to want to pursue aggressive treatment. I will discuss with her all the findings and discuss the option of hospice care as he is 86 years old and has been encephalopathic for almost all the while at least 2-3 months now since he arrived to [facility] [place] in [place]. DENNYS/ISAIAH DR: Deepthi TID: [id number]
[2021-12-10] VITALS (20 sets, daily range): BP systolic 106–171; BP diastolic 41–74
[2021-12-10] MEDS: PIPERACILLIN/TAZOBACTAM 4.5 GM in IV DEXTROSE 5% 100ML 100 ML IV SCH ×4 (05:29→23:43)
[2021-12-10] MEDS: INSULIN LISPRO 300 UNITS/3 ML VIAL. SQ SCH ×4 (06:00→17:58)
--- NOTE | 2021-12-10 06:17 | PDOC ---
PULMONARY PROGRESS NOTES DATE: 12/10/21 TIME: 06:15 Subjective more alert on vm 35% fio2 feels better on bipap overnight Vitals Vital Signs Date Time Temp Pulse Resp B/P (MAP) Pulse Ox O2 Delivery O2 Flow Rate FiO2 12/10/21 04:00 Bi-pap 12/10/21 04:00 99 12/09/21 18:00 63 19 117/41 9.0 12/09/21 16:00 98.7 98.7 ROS: No Nausea, No Chest Pain General: Alert HEENT: Other (nc at perrl ) Lungs: Crackles Cardiovascular: S1, S2 Abdomen: Soft, Non-tender Neuro Exam: Alert Extremities: Other (edema ) Skin: Warm Labs Laboratory Tests Test 12/08/21 12:27 12/08/21 12:30 12/08/21 13:40 12/08/21 17:07 O2 Saturation 96 % (92-99) 91 % (92-99) Arterial Blood pH 7.17 (7.35-7.45) 7.32 (7.35-7.45) Arterial Blood pH (Temp corrected) 7.15 Arterial Blood pCO2 at Patient Temp 92 mmHg (35-46) 63 mmHg (35-46) Arterial Blood pCO2 (Temp correct) 100 mmHg Arterial Blood pO2 at Patient Temp 105 mmHg (65-108) 60 mmHg (65-108) Arterial Blood pO2 (Temp corrected) 116 mmHg Arterial Blood HCO3 33 mmol/L (21-28) 32 mmol/L (21-28) Arterial Blood Base Excess 2 mmol/L (-3-3) 5 mmol/L (-3-3) FiO2 100/ 15l nrb 40/bipap White Blood Count 10.8 x10^3/uL (4.0-11.0) Red Blood Count 3.20 x10^6/uL (4.30-5.70) Hemoglobin 9.9 g/dL (13.0-17.5) Hematocrit 31.3 % (39.0-53.0) Mean Corpuscular Volume 98 fL (79-100) Mean Corpuscular Hemoglobin 31 pg (25-35) Mean Corpuscular Hemoglobin Concent 32 g/dL (31-37) Red Cell Distribution Width 17.8 % (11.5-14.5) Platelet Count 241 x10^3/uL (140-400) Neutrophils (%) (Auto) 87 % (31-73) Lymphocytes (%) (Auto) 8 % (24-48) Monocytes (%) (Auto) 4 % (0-9) Eosinophils (%) (Auto) 0 % (0-3) Basophils (%) (Auto) 1 % (0-3) Neutrophils # (Auto) 9.4 x10^3/uL (1.8-7.7) Lymphocytes # (Auto) 0.9 x10^3/uL (1.0-4.8) Monocytes # (Auto) 0.4 x10^3/uL (0.0-1.1) Eosinophils # (Auto) 0.0 x10^3/uL (0.0-0.7) Basophils # (Auto) 0.1 x10^3/uL (0.0-0.2) Segmented Neutrophils % 86 % (35-66) Lymphocytes % 6 % (24-48) Monocytes % 8 % (0-10) Nucleated Red Blood Cells 2 Toxic Granulation Slight Platelet Estimate Adequate (ADEQUATE) Large Platelets Few Polychromasia Slight Basophilic Stippling Present Anisocytosis Slight Sodium Level 165 mmol/L (136-145) Potassium Level 3.8 mmol/L (3.5-5.1) Chloride Level 120 mmol/L (98-107) Carbon Dioxide Level 37 mmol/L (21-32) Anion Gap 8 (6-14) Blood Urea Nitrogen 47 mg/dL (8-26) Creatinine 0.9 mg/dL (0.7-1.3) Estimated GFR (Cockcroft-Gault) 79.6 BUN/Creatinine Ratio 52 (6-20) Glucose Level 160 mg/dL (70-99) Lactic Acid Level 1.3 mmol/L (0.4-2.0) Calcium Level 7.8 mg/dL (8.5-10.1) Phosphorus Level 4.1 mg/dL (2.6-4.7) Magnesium Level 2.3 mg/dL (1.8-2.4) Total Bilirubin 0.4 mg/dL (0.2-1.0) Aspartate Amino Transf (AST/SGOT) 33 U/L (15-37) Alanine Aminotransferase (ALT/SGPT) 10 U/L (16-63) Alkaline Phosphatase 130 U/L (46-116) Troponin I High Sensitivity 1199 ng/L (4-75) OC-Hat-T-Type Natriuretic Peptide 87537 pg/mL (0-449) Total Protein 6.0 g/dL (6.4-8.2) Albumin 1.7 g/dL (3.4-5.0) Albumin/Globulin Ratio 0.4 (1.0-1.7) Urine Color Julianna Urine Clarity Cloudy Urine pH 5.5 (<5.0-8.0) Urine Specific [place] 1.025 (1.000-1.030) Urine Protein 100 mg/dL (NEG-TRACE) Urine Glucose (UA) Negative mg/dL (NEG) Urine Ketones (Stick) Trace mg/dL (NEG) Urine Blood Negative (NEG) Urine Nitrite Negative (NEG) Urine Bilirubin Negative (NEG) Urine Urobilinogen Dipstick 0.2 mg/dL (0.2 mg/dL) Urine Leukocyte Esterase Negative (NEG) Urine RBC 1-2 /HPF (0-2) Urine WBC 5-10 /HPF (0-4) Urine Amorphous Sediment Present /HPF Urine Bacteria Few /HPF (0-FEW) Urine Cellular Casts Mod /HPF Urine Hyaline Casts Few /HPF Urine Granular Casts Many /HPF Urine Opiates Screen Neg (NEG) Urine Methadone Screen Neg (NEG) Urine Barbiturates Neg (NEG) Urine Phencyclidine Screen Neg (NEG) Urine Amphetamine/Methamphetamine Neg (NEG) Urine Benzodiazepines Screen Neg (NEG) Urine Cocaine Screen Neg (NEG) Urine Cannabinoids Screen Neg (NEG) Urine Ethyl Alcohol Neg (NEG) Coronavirus (COVID-19)(PCR) Not detected (NOT DETECTD) Influenza Type A Antigen Negative (NEGATIVE) Influenza Type B Antigen Negative (NEGATIVE) SARS-CoV-2 Antigen (Rapid) Negative (NEGATIVE) Test 12/08/21 18:50 12/08/21 21:20 12/09/21 02:00 12/09/21 06:35 Sodium Level 159 mmol/L (136-145) 157 mmol/L (136-145) Potassium Level 3.5 mmol/L (3.5-5.1) 3.2 mmol/L (3.5-5.1) Chloride Level 118 mmol/L (98-107) 117 mmol/L (98-107) Carbon Dioxide Level 32 mmol/L (21-32) 31 mmol/L (21-32) Anion Gap 9 (6-14) 9 (6-14) Blood Urea Nitrogen 48 mg/dL (8-26) 55 mg/dL (8-26) Creatinine 1.0 mg/dL (0.7-1.3) 1.3 mg/dL (0.7-1.3) Estimated GFR (Cockcroft-Gault) 70.5 52.1 Glucose Level 299 mg/dL (70-99) 261 mg/dL (70-99) Calcium Level 7.2 mg/dL (8.5-10.1) 7.3 mg/dL (8.5-10.1) Troponin I High Sensitivity 1535 ng/L (4-75) 2073 ng/L (4-75) Heparin Anti-Xa Act, Unfractionated 0.66 IU/mL (0.30-0.70) White Blood Count 13.0 x10^3/uL (4.0-11.0) Red Blood Count 3.00 x10^6/uL (4.30-5.70) Hemoglobin 9.1 g/dL (13.0-17.5) Hematocrit 29.3 % (39.0-53.0) Mean Corpuscular Volume 98 fL (79-100) Mean Corpuscular Hemoglobin 31 pg (25-35) Mean Corpuscular Hemoglobin Concent 31 g/dL (31-37) Red Cell Distribution Width 17.8 % (11.5-14.5) Platelet Count 209 x10^3/uL (140-400) Neutrophils (%) (Auto) 78 % (31-73) Lymphocytes (%) (Auto) 12 % (24-48) Monocytes (%) (Auto) 9 % (0-9) Eosinophils (%) (Auto) 0 % (0-3) Basophils (%) (Auto) 1 % (0-3) Neutrophils # (Auto) 10.2 x10^3/uL (1.8-7.7) Lymphocytes # (Auto) 1.5 x10^3/uL (1.0-4.8) Monocytes # (Auto) 1.1 x10^3/uL (0.0-1.1) Eosinophils # (Auto) 0.1 x10^3/uL (0.0-0.7) Basophils # (Auto) 0.1 x10^3/uL (0.0-0.2) BUN/Creatinine Ratio 42 (6-20) Total Bilirubin 0.5 mg/dL (0.2-1.0) Aspartate Amino Transf (AST/SGOT) 35 U/L (15-37) Alanine Aminotransferase (ALT/SGPT) 8 U/L (16-63) Alkaline Phosphatase 114 U/L (46-116) FU-Img-T-Type Natriuretic Peptide 15577 pg/mL (0-449) Total Protein 5.4 g/dL (6.4-8.2) Albumin 1.5 g/dL (3.4-5.0) Albumin/Globulin Ratio 0.4 (1.0-1.7) Test 12/09/21 11:20 12/09/21 11:30 12/09/21 11:57 12/09/21 17:30 O2 Saturation 97 % (92-99) Arterial Blood pH 7.46 (7.35-7.45) Arterial Blood pCO2 at Patient Temp 40 mmHg (35-46) Arterial Blood pO2 at Patient Temp 93 mmHg (65-108) Arterial Blood HCO3 28 mmol/L (21-28) Arterial Blood Base Excess 4 mmol/L (-3-3) FiO2 40% bipap Heparin Anti-Xa Act, Unfractionated > 1.10 IU/mL (0.30-0.70) Glucose (Fingerstick) 209 mg/dL (70-99) 166 mg/dL (70-99) Test 12/09/21 18:40 12/10/21 00:20 12/10/21 00:53 12/10/21 05:36 Heparin Anti-Xa Act, Unfractionated 0.61 IU/mL (0.30-0.70) 0.24 IU/mL (0.30-0.70) Glucose (Fingerstick) 143 mg/dL (70-99) 148 mg/dL (70-99) Laboratory Tests Test 12/09/21 06:35 12/09/21 11:20 12/09/21 11:30 12/09/21 11:57 White Blood Count 13.0 x10^3/uL (4.0-11.0) Red Blood Count 3.00 x10^6/uL (4.30-5.70) Hemoglobin 9.1 g/dL (13.0-17.5) Hematocrit 29.3 % (39.0-53.0) Mean Corpuscular Volume 98 fL (79-100) Mean Corpuscular Hemoglobin 31 pg (25-35) Mean Corpuscular Hemoglobin Concent 31 g/dL (31-37) Red Cell Distribution Width 17.8 % (11.5-14.5) Platelet Count 209 x10^3/uL (140-400) Neutrophils (%) (Auto) 78 % (31-73) Lymphocytes (%) (Auto) 12 % (24-48) Monocytes (%) (Auto) 9 % (0-9) Eosinophils (%) (Auto) 0 % (0-3) Basophils (%) (Auto) 1 % (0-3) Neutrophils # (Auto) 10.2 x10^3/uL (1.8-7.7) Lymphocytes # (Auto) 1.5 x10^3/uL (1.0-4.8) Monocytes # (Auto) 1.1 x10^3/uL (0.0-1.1) Eosinophils # (Auto) 0.1 x10^3/uL (0.0-0.7) Basophils # (Auto) 0.1 x10^3/uL (0.0-0.2) Sodium Level 157 mmol/L (136-145) Potassium Level 3.2 mmol/L (3.5-5.1) Chloride Level 117 mmol/L (98-107) Carbon Dioxide Level 31 mmol/L (21-32) Anion Gap 9 (6-14) Blood Urea Nitrogen 55 mg/dL (8-26) Creatinine 1.3 mg/dL (0.7-1.3) Estimated GFR (Cockcroft-Gault) 52.1 BUN/Creatinine Ratio 42 (6-20) Glucose Level 261 mg/dL (70-99) Calcium Level 7.3 mg/dL (8.5-10.1) Total Bilirubin 0.5 mg/dL (0.2-1.0) Aspartate Amino Transf (AST/SGOT) 35 U/L (15-37) Alanine Aminotransferase (ALT/SGPT) 8 U/L (16-63) Alkaline Phosphatase 114 U/L (46-116) DQ-Diy-B-Type Natriuretic Peptide 68822 pg/mL (0-449) Total Protein 5.4 g/dL (6.4-8.2) Albumin 1.5 g/dL (3.4-5.0) Albumin/Globulin Ratio 0.4 (1.0-1.7) O2 Saturation 97 % (92-99) Arterial Blood pH 7.46 (7.35-7.45) Arterial Blood pCO2 at Patient Temp 40 mmHg (35-46) Arterial Blood pO2 at Patient Temp 93 mmHg (65-108) Arterial Blood HCO3 28 mmol/L (21-28) Arterial Blood Base Excess 4 mmol/L (-3-3) FiO2 40% bipap Heparin Anti-Xa Act, Unfractionated > 1.10 IU/mL (0.30-0.70) Glucose (Fingerstick) 209 mg/dL (70-99) Test 12/09/21 17:30 12/09/21 18:40 12/10/21 00:20 12/10/21 00:53 Glucose (Fingerstick) 166 mg/dL (70-99) 143 mg/dL (70-99) Heparin Anti-Xa Act, Unfractionated 0.61 IU/mL (0.30-0.70) 0.24 IU/mL (0.30-0.70) Test 12/10/21 05:36 Glucose (Fingerstick) 148 mg/dL (70-99) Medications Active Scripts Medications Dose Route/Sig Max Daily Dose Days Date Category Lorazepam 2 Mg/1 Ml Oral.conc 2 Mg PO PRN Q4HRS PRN 12/08/21 Reported Metformin Hcl 1,000 Mg Tablet 1,000 Mg PO DAILYWBKFT 30 11/10/21 Rx Aspirin Ec (Aspirin) 81 Mg Tablet.dr 81 Mg PO DAILYWBKFT 30 11/10/21 Rx Lisinopril 10 Mg Tablet 10 Mg PO DAILY 30 11/10/21 Rx Actos (Pioglitazone Hcl) 45 Mg Tablet 45 Mg PO QHS 11/02/21 Reported Amlodipine Besylate 10 Mg Tablet 10 Mg PO DAILY 11/02/21 Reported Metoprolol Succinate ( Xl ) (Metoprolol Succinate) 100 Mg Tab.er.24h 100 Mg PO DAILY 11/02/21 Reported Melatonin 3 Mg Capsule 3 Mg PO QHS 11/02/21 Reported Glipizide 10 Mg Tablet 20 Mg PO DAILY 11/02/21 Reported Atorvastatin Calcium 40 Mg Tablet 40 Mg PO HS 11/02/21 Reported Impression . IMPRESSION: 1. Acute hypoxemic hypercarbic respiratory failure secondary to aspiration pneumonia and acute on chronic diastolic congestive heart failure and non-ST elevation myocardial infarction. 2. Abnormal chest x-ray. 3. Aspiration pneumonia. 4. Acute on chronic diastolic dysfunction. 5. Hypernatremia. 6. Dehydration. 7. Dysphagia. 8. Paroxysmal atrial fibrillation. 9. Non-ST elevation myocardial infarction. 10. Diabetes mellitus. 11. History of hypertension. 12. Hypotension resolved. Plan . PLAN AND RECOMMENDATIONS: 1. Titrate FiO2 to keep O2 saturation 90%. Avoid hyperoxygenation. is a retainer 2. Elevate head of bed. 3. Continue BiPAP prn during day cont at night. 4. Continue Zosyn. 5. Continue heparin per Cardiology. 6. elevate hob 7. Decrease D5W to 75 mL per hour. 8. Pepcid for stress ulcer prophylaxis. 9. speech eval 10. The patient is DNI/DNR. Overall, prognosis is poor. The findings and recommendations were discussed with PHUONG. DARLENE AVILES MD Dec 10, 2021 06:17
--- NOTE | 2021-12-10 07:38 | PDOC ---
Infectious Disease Note Subjective Subjective pt is more awake, nodes ROS ROS no n/v/d/ Vital Sign Vital Signs Vital Signs Date Time Temp Pulse Resp B/P (MAP) Pulse Ox O2 Delivery O2 Flow Rate FiO2 12/10/21 07:24 96 Nasal Cannula 2.0 12/10/21 07:00 63 18 114/45 12/09/21 16:00 98.7 98.7 Physical Exam PHYSICAL EXAM GENERAL: The patient is awake, not in any distress. VITAL SIGNS: Stable, afebrile, HEENT: Both pupils are round and reacting. No conjunctival lesion. No lesion in the mouth. NECK: Supple, no JVP, no lymphadenopathy. LUNGS: Clear. HEART: S1, S2, regular. ABDOMEN: Soft, nontender. No organomegaly. EXTREMITIES: Bruising present. There are no signs of infection. No other significant skin breakdown. NEUROLOGIC: The patient opens eyes only, does not verbalize, and does not follow command. Labs Lab Laboratory Tests Test 12/09/21 11:20 12/09/21 11:30 12/09/21 11:57 12/09/21 17:30 O2 Saturation 97 % (92-99) Arterial Blood pH 7.46 (7.35-7.45) Arterial Blood pCO2 at Patient Temp 40 mmHg (35-46) Arterial Blood pO2 at Patient Temp 93 mmHg (65-108) Arterial Blood HCO3 28 mmol/L (21-28) Arterial Blood Base Excess 4 mmol/L (-3-3) FiO2 40% bipap Heparin Anti-Xa Act, Unfractionated > 1.10 IU/mL (0.30-0.70) Glucose (Fingerstick) 209 mg/dL (70-99) 166 mg/dL (70-99) Test 12/09/21 18:40 12/10/21 00:20 12/10/21 00:53 12/10/21 05:36 Heparin Anti-Xa Act, Unfractionated 0.61 IU/mL (0.30-0.70) 0.24 IU/mL (0.30-0.70) Glucose (Fingerstick) 143 mg/dL (70-99) 148 mg/dL (70-99) Micro Microbiology 12/08/21 Blood Culture - Preliminary, Resulted NO GROWTH AFTER 1 DAY Objective Assessment IMPRESSION: 1. Hypoxic respiratory failure. 2. Encephalopathy. 3. Recent staphylococcal lugdunensis bacteremia. 4. Dehydration with hypernatremia. 5. Prerenal azotemia. Plan Plan of Care cont antibiotics cont supportive care SERGIO OLIVO MD Dec 10, 2021 07:38
[2021-12-10 07:56] LABS: BASO # 0.1 x10^3/uL (0.0-0.2); BASO % 1 % (0-3); EOS # 0.1 x10^3/uL (0.0-0.7); EOS % 1 % (0-3); HEMATOCRIT 26.6 % (39.0-53.0); HEMOGLOBIN 8.3 g/dL (13.0-17.5); LYMPH # 0.8 x10^3/uL (1.0-4.8); LYMPH % 12 % (24-48); MEAN CORPUSCULAR HEMOGLOBIN 30 pg (25-35); MEAN CORPUSCULAR HGB CONC 31 g/dL (31-37); MEAN CORPUSCULAR VOLUME 97 fL (79-100); MONO # 0.4 x10^3/uL (0.0-1.1); MONO % 6 % (0-9); NEUT # 5.5 x10^3/uL (1.8-7.7); NEUT % 80 % (31-73); PLATELET COUNT 102 x10^3/uL (140-400); RED BLOOD COUNT 2.75 x10^6/uL (4.30-5.70); RED CELL DISTRIBUTION WIDTH 17.9 % (11.5-14.5); WHITE BLOOD COUNT 6.9 x10^3/uL (4.0-11.0)
[2021-12-10 08:25] LABS: ALBUMIN 1.3 g/dL (3.4-5.0); ALBUMIN/GLOBULIN RATIO 0.4 (1.0-1.7); CALCIUM 6.9 mg/dL (8.5-10.1); CREATININE 1.2 mg/dL (0.7-1.3); GFR 57.1; TOTAL BILIRUBIN 0.5 mg/dL (0.2-1.0); TOTAL PROTEIN 4.5 g/dL (6.4-8.2)
[2021-12-10 08:29] LABS: POTASSIUM 2.7 mmol/L (3.5-5.1)
[2021-12-10] MEDS: POTASSIUM CHLORIDE 20MEQ 100 ML IV SCH ×4 (09:05→11:56)
[2021-12-10] MEDS: FAMOTIDINE 20 MG/2 ML VIAL IVP SCH (09:07)
--- NOTE | 2021-12-10 11:00 | PN ---
DATE: 12/10/2021 SUBJECTIVE: The patient is resting, slightly propped up in bed, in no apparent respiratory distress. He is definitely more awake, alert, opens eyes, tracks and even attempts to mouth some words. He is now on only 2 liters of oxygen, maintaining his oxygen saturation at 98%. PHYSICAL EXAMINATION: GENERAL: When I examined him, he was pale, but not jaundiced or cyanosed, no lymphadenopathy, no thyromegaly, no jugular venous distention. No limb edema. VITAL SIGNS: His heart rate was 65, blood pressure was 108/45, temperature 97.7, respiratory rate was 19, and oxygen saturation was 98% on 2 liters of oxygen by nasal cannula. HEAD, EYES, EARS, NOSE, AND THROAT: Normocephalic, atraumatic. NECK: Supple. HEART: Showed normal first and second heart sounds. No gallop, rub or murmur. CHEST: Shows central trachea, equal bilateral chest expansion, air entry, vesicular breath sounds with bilateral basal crepitation. I could not appreciate any rhonchi. ABDOMEN: Distended, soft, nontender. NEUROLOGIC: He is definitely more awake, alert, opens his eyes, tracks and attempts to mouth some words. He moves his upper extremities to much good extent than lower extremities. His intake over the last 24 hours was 1569, output was 305. LABORATORY DATA: This morning showed a white cell count 6900, hemoglobin 8.3, hematocrit 26.6, MCV 97, and platelet count of 102,000. His chemistry showed a sodium down to 153, potassium is low at 2.7, chloride 113, bicarbonate 32, anion gap of 8, BUN 54, creatinine 1.2, estimated GFR was 57 mL per minute, his glucose 171, calcium was 6.9. Total bilirubin, AST, ALT, alkaline phosphatase were normal. Total protein 4.5, albumin was 1.3. His blood cultures have shown no growth after 1 day and his urine culture showed no growth. His chest x-ray done yesterday showed that the patient has a right arm PICC line with its tip in the superior vena cava, interstitial opacities in the bases are consistent with atelectasis and mild pulmonary edema, these appear improved. Small bilateral pleural effusions appear improved. There is a calcified granuloma in the right upper lobe. There is no pneumothorax. The heart is mildly enlarged, calcified lymph nodes likely reflect an old granulomatous disease. There are atherosclerotic calcification of the aorta. In summary, this is an 86-year-old male patient who was admitted with acute hypercapnic respiratory failure. 1. Metabolic encephalopathy, likely multifactorial including severe hypernatremia and hypercapnia. 2. Acute on chronic hypoxic hypercapnic respiratory failure. 3. Aspiration pneumonia. 4. Non-ST segment elevation myocardial infarction. 5. Congestive heart failure, probably due to ischemic cardiomyopathy. 6. The patient has multiple preexisting conditions including hypertension, type 2 diabetes mellitus, has history of Staphylococcus lugdunensis bacteremia, treated with cefazolin 2 grams IV q. 8 hourly for 4 weeks. He is a DNR/DNI. I have spoken to his daughter and apparently the patient made it clear that he does not want any feeding tube. Daughter is still struggling with respecting his wishes and basically treating him. She will talk to her sister. We will have a meeting tomorrow as hospice is a possible option as he is 86 years old and has a multitude of medical problems. He is likely to continue aspirating and has congestive heart failure. JASE MACIAS: Deepthi TID: [id number]
[2021-12-10] MEDS: IV DEXTROSE 5% 1,000 ML IV SCH ×2 (11:02→19:14)
--- NOTE | 2021-12-10 12:05 | PDOC ---
PROGRESS NOTES Date of Service: DATE: 12/10/21 TIME: 12:03 Subjective Subjective More alert, off BiPAP Objective Objective Vital Signs Date Time Temp Pulse Resp B/P (MAP) Pulse Ox O2 Delivery O2 Flow Rate FiO2 12/10/21 10:00 66 20 112/60 100 Nasal Cannula 2.0 12/10/21 08:00 97.7 97.7 Intake and Output 12/10/21 07:00 Intake Total 1243.8 ml Output Total 590 ml Balance 653.8 ml Intake IV Total 1243.8 ml Output Urine Total 590 ml Physical Exam Abdomen: Soft Heart: Regular rate Extremities: Other (Trace edema with hyperpigmentation) General: Alert HEENT: Atraumatic Lungs: Other (Bilateral scattered crepitations) Neck: Supple Assessment Assessment 1. Non-STEMI, most likely type II/demand ischemia. His troponin level was actually higher last admission (about 3000). Per family, he did not have any chest pain. Recent BARBARA showed normal LV systolic function without any wall mot ion abnormalities. Plan conservative management. 2. Acute respiratory failure secondary to aspiration pneumonia: Needing BiPAP, continue intravenous antibiotics. Pulmonary team following. 3. Chronic diastolic heart failure: Patient's BNP level is significantly elevated but clinically and based on labs, he appears to be dehydrated. We will hold off on any diuretics at this time. 4. Paroxysmal atrial fibrillation: Presently sinus rhythm. He is currently wearing event monitor to assess AF burden. We will follow up on the results once completed. He is probably a poor candidate for long-term anticoagulation. 5. Hypertension: Controlled 6. Hyperlipidemia: Continue statin therapy 7. DM2: Treat per IM 8. Dehydration, hyponatremia: Per primary service Plan Plan of Care Problems Medical Problems: (1) CHF (congestive heart failure) Status: Acute (2) Dehydration Status: Acute (3) Encephalopathy Status: Acute (4) Hypercapnia Status: Acute (5) NSTEMI (non-ST elevated myocardial infarction) Status: Acute (6) Pneumonia Status: Acute Comment Review of Relevant I have reviewed the following items marcelino (where applicable) has been applied. Labs Laboratory Tests Test 12/09/21 17:30 12/09/21 18:40 12/10/21 00:20 12/10/21 00:53 Glucose (Fingerstick) 166 mg/dL (70-99) 143 mg/dL (70-99) Heparin Anti-Xa Act, Unfractionated 0.61 IU/mL (0.30-0.70) 0.24 IU/mL (0.30-0.70) Test 12/10/21 05:36 12/10/21 07:00 12/10/21 07:45 12/10/21 11:54 Glucose (Fingerstick) 148 mg/dL (70-99) 141 mg/dL (70-99) Heparin Anti-Xa Act, Unfractionated 0.74 IU/mL (0.30-0.70) White Blood Count 6.9 x10^3/uL (4.0-11.0) Red Blood Count 2.75 x10^6/uL (4.30-5.70) Hemoglobin 8.3 g/dL (13.0-17.5) Hematocrit 26.6 % (39.0-53.0) Mean Corpuscular Volume 97 fL (79-100) Mean Corpuscular Hemoglobin 30 pg (25-35) Mean Corpuscular Hemoglobin Concent 31 g/dL (31-37) Red Cell Distribution Width 17.9 % (11.5-14.5) Platelet Count 102 x10^3/uL (140-400) Neutrophils (%) (Auto) 80 % (31-73) Lymphocytes (%) (Auto) 12 % (24-48) Monocytes (%) (Auto) 6 % (0-9) Eosinophils (%) (Auto) 1 % (0-3) Basophils (%) (Auto) 1 % (0-3) Neutrophils # (Auto) 5.5 x10^3/uL (1.8-7.7) Lymphocytes # (Auto) 0.8 x10^3/uL (1.0-4.8) Monocytes # (Auto) 0.4 x10^3/uL (0.0-1.1) Eosinophils # (Auto) 0.1 x10^3/uL (0.0-0.7) Basophils # (Auto) 0.1 x10^3/uL (0.0-0.2) Sodium Level 153 mmol/L (136-145) Potassium Level 2.7 mmol/L (3.5-5.1) Chloride Level 113 mmol/L (98-107) Carbon Dioxide Level 32 mmol/L (21-32) Anion Gap 8 (6-14) Blood Urea Nitrogen 54 mg/dL (8-26) Creatinine 1.2 mg/dL (0.7-1.3) Estimated GFR (Cockcroft-Gault) 57.1 BUN/Creatinine Ratio 45 (6-20) Glucose Level 171 mg/dL (70-99) Calcium Level 6.9 mg/dL (8.5-10.1) Total Bilirubin 0.5 mg/dL (0.2-1.0) Aspartate Amino Transf (AST/SGOT) 27 U/L (15-37) Alanine Aminotransferase (ALT/SGPT) 9 U/L (16-63) Alkaline Phosphatase 104 U/L (46-116) Total Protein 4.5 g/dL (6.4-8.2) Albumin 1.3 g/dL (3.4-5.0) Albumin/Globulin Ratio 0.4 (1.0-1.7) Microbiology 12/08/21 Blood Culture - Preliminary, Resulted NO GROWTH AFTER 1 DAY 12/08/21 Urine Culture - Final, Complete Medications Current Medications Famotidine (Pepcid Vial) 20 mg DAILY IVP Last administered on 12/10/21at 09:07; Start 12/10/21 at 09:00 Potassium Chloride/Water 100 ml @ 100 mls/hr Q1H IV Last administered on 12/10/21at 11:56; Start 12/10/21 at 09:00; Stop 12/10/21 at 12:59 Vitals/I & O Vital Sign - Last 24 Hours 12/09/21 12/09/21 12/09/21 12/09/21 13:00 13:01 14:00 15:00 Pulse 53 53 53 Resp 21 19 20 B/P (MAP) 118/42 117/42 107/62 Pulse Ox 100 100 100 100 O2 Delivery BiPAP/CPAP BiPAP/CPAP BiPAP/CPAP BiPAP/CPAP 12/09/21 12/09/21 12/09/21 12/09/21 15:53 15:57 16:00 16:00 Temp 98.7 98.7 Pulse 69 Resp 20 B/P (MAP) 112/43 Pulse Ox 100 96 100 O2 Delivery BiPAP/CPAP Venturi Mask Venturi Mask Venturi Mask O2 Flow Rate 10.0 9.0 9.0 12/09/21 12/09/21 12/09/21 12/09/21 17:00 18:00 19:00 20:00 Pulse 66 63 67 63 Resp 18 19 19 B/P (MAP) 117/53 117/41 112/49 111/48 Pulse Ox 100 100 98 98 O2 Delivery Venturi Mask Venturi Mask Venturi Mask Venturi Mask O2 Flow Rate 9.0 9.0 9.0 9.0 12/09/21 12/09/21 12/09/21 12/09/21 20:00 20:15 21:00 22:00 Pulse 54 60 Resp 19 B/P (MAP) 87/33 110/44 Pulse Ox 99 100 100 O2 Delivery BiPAP/CPAP Bi-pap BiPAP/CPAP BiPAP/CPAP 12/09/21 12/09/21 12/10/21 12/10/21 23:00 23:59 00:00 00:00 Pulse 54 69 Resp B/P (MAP) 92/33 118/53 Pulse Ox 100 99 100 O2 Delivery BiPAP/CPAP Bi-pap BiPAP/CPAP BiPAP/CPAP 12/10/21 12/10/21 12/10/21 12/10/21 01:00 04:00 04:00 04:00 Pulse 63 65 Resp B/P (MAP) 114/51 118/55 Pulse Ox 100 100 99 O2 Delivery BiPAP/CPAP BiPAP/CPAP BiPAP/CPAP Bi-pap 12/10/21 12/10/21 12/10/21 12/10/21 07:00 07:24 08:00 08:00 Temp 97.7 97.7 Pulse 63 65 Resp 18 B/P (MAP) 114/45 119/50 Pulse Ox 100 96 98 O2 Delivery Nasal Cannula Nasal Cannula Nasal Cannula Nasal Cannula O2 Flow Rate 2.0 2.0 2.0 2.0 12/10/21 12/10/21 09:00 10:00 Pulse 65 66 Resp 19 20 B/P (MAP) 108/45 112/60 Pulse Ox 100 100 O2 Delivery Nasal Cannula Nasal Cannula O2 Flow Rate 2.0 2.0 Intake and Output 12/09/21 12/09/21 12/10/21 15:00 23:00 07:00 Intake Total 213.4 ml 1030.4 ml Output Total 75 ml 255 ml 260 ml Balance 138.4 ml 775.4 ml -260 ml JUAN PANDYA MD Dec 10, 2021 12:05
[2021-12-10] MEDS: HEPARIN 25,000UTS/250ML PREMIX 250 ML IV PRN (23:46)
[2021-12-11] VITALS (9 sets, daily range): BP systolic 116–154; BP diastolic 45–64
[2021-12-11] MEDS: INSULIN LISPRO 300 UNITS/3 ML VIAL. SQ SCH ×2 (00:12→06:00)
[2021-12-11 04:56] LABS: HEMOGLOBIN 8.4 g/dL (13.0-17.5); RED BLOOD COUNT 2.81 x10^6/uL (4.30-5.70); RED CELL DISTRIBUTION WIDTH 17.3 % (11.5-14.5); WHITE BLOOD COUNT 6.5 x10^3/uL (4.0-11.0)
[2021-12-11 05:37] LABS: ALBUMIN 1.3 g/dL (3.4-5.0); ALBUMIN/GLOBULIN RATIO 0.4 (1.0-1.7); CALCIUM 6.9 mg/dL (8.5-10.1); GFR 70.5; POTASSIUM 3.3 mmol/L (3.5-5.1); TOTAL BILIRUBIN 0.4 mg/dL (0.2-1.0); TOTAL PROTEIN 4.4 g/dL (6.4-8.2)
[2021-12-11] MEDS: PIPERACILLIN/TAZOBACTAM 4.5 GM in IV DEXTROSE 5% 100ML 100 ML IV SCH (05:59)
--- NOTE | 2021-12-11 06:58 | PDOC ---
Infectious Disease Note Subjective Subjective pt is more awake, nodes ROS ROS no n/v/d/ Vital Sign Vital Signs Vital Signs Date Time Temp Pulse Resp B/P (MAP) Pulse Ox O2 Delivery O2 Flow Rate FiO2 12/11/21 06:00 86 26 148/54 97 Nasal Cannula 2.0 12/11/21 04:00 97.9 97.9 Physical Exam PHYSICAL EXAM GENERAL: The patient is awake, not in any distress. VITAL SIGNS: Stable, afebrile, HEENT: Both pupils are round and reacting. No conjunctival lesion. No lesion in the mouth. NECK: Supple, no JVP, no lymphadenopathy. LUNGS: Clear. HEART: S1, S2, regular. ABDOMEN: Soft, nontender. No organomegaly. EXTREMITIES: Bruising present. There are no signs of infection. No other significant skin breakdown. NEUROLOGIC: The patient opens eyes only, does not verbalize, and does not follow command. Labs Lab Laboratory Tests Test 12/10/21 07:00 12/10/21 07:45 12/10/21 11:54 12/10/21 14:00 Heparin Anti-Xa Act, Unfractionated 0.74 IU/mL (0.30-0.70) 0.35 IU/mL (0.30-0.70) White Blood Count 6.9 x10^3/uL (4.0-11.0) Red Blood Count 2.75 x10^6/uL (4.30-5.70) Hemoglobin 8.3 g/dL (13.0-17.5) Hematocrit 26.6 % (39.0-53.0) Mean Corpuscular Volume 97 fL (79-100) Mean Corpuscular Hemoglobin 30 pg (25-35) Mean Corpuscular Hemoglobin Concent 31 g/dL (31-37) Red Cell Distribution Width 17.9 % (11.5-14.5) Platelet Count 102 x10^3/uL (140-400) Neutrophils (%) (Auto) 80 % (31-73) Lymphocytes (%) (Auto) 12 % (24-48) Monocytes (%) (Auto) 6 % (0-9) Eosinophils (%) (Auto) 1 % (0-3) Basophils (%) (Auto) 1 % (0-3) Neutrophils # (Auto) 5.5 x10^3/uL (1.8-7.7) Lymphocytes # (Auto) 0.8 x10^3/uL (1.0-4.8) Monocytes # (Auto) 0.4 x10^3/uL (0.0-1.1) Eosinophils # (Auto) 0.1 x10^3/uL (0.0-0.7) Basophils # (Auto) 0.1 x10^3/uL (0.0-0.2) Sodium Level 153 mmol/L (136-145) Potassium Level 2.7 mmol/L (3.5-5.1) Chloride Level 113 mmol/L (98-107) Carbon Dioxide Level 32 mmol/L (21-32) Anion Gap 8 (6-14) Blood Urea Nitrogen 54 mg/dL (8-26) Creatinine 1.2 mg/dL (0.7-1.3) Estimated GFR (Cockcroft-Gault) 57.1 BUN/Creatinine Ratio 45 (6-20) Glucose Level 171 mg/dL (70-99) Calcium Level 6.9 mg/dL (8.5-10.1) Total Bilirubin 0.5 mg/dL (0.2-1.0) Aspartate Amino Transf (AST/SGOT) 27 U/L (15-37) Alanine Aminotransferase (ALT/SGPT) 9 U/L (16-63) Alkaline Phosphatase 104 U/L (46-116) Total Protein 4.5 g/dL (6.4-8.2) Albumin 1.3 g/dL (3.4-5.0) Albumin/Globulin Ratio 0.4 (1.0-1.7) Glucose (Fingerstick) 141 mg/dL (70-99) Test 12/10/21 17:56 12/10/21 20:45 12/11/21 00:10 12/11/21 04:40 Glucose (Fingerstick) 159 mg/dL (70-99) 162 mg/dL (70-99) Heparin Anti-Xa Act, Unfractionated 0.17 IU/mL (0.30-0.70) 0.41 IU/mL (0.30-0.70) White Blood Count 6.5 x10^3/uL (4.0-11.0) Red Blood Count 2.81 x10^6/uL (4.30-5.70) Hemoglobin 8.4 g/dL (13.0-17.5) Hematocrit 27.0 % (39.0-53.0) Mean Corpuscular Volume 96 fL (79-100) Mean Corpuscular Hemoglobin 30 pg (25-35) Mean Corpuscular Hemoglobin Concent 31 g/dL (31-37) Red Cell Distribution Width 17.3 % (11.5-14.5) Platelet Count 103 x10^3/uL (140-400) Sodium Level 151 mmol/L (136-145) Potassium Level 3.3 mmol/L (3.5-5.1) Chloride Level 112 mmol/L (98-107) Carbon Dioxide Level 31 mmol/L (21-32) Anion Gap 8 (6-14) Blood Urea Nitrogen 47 mg/dL (8-26) Creatinine 1.0 mg/dL (0.7-1.3) Estimated GFR (Cockcroft-Gault) 70.5 BUN/Creatinine Ratio 47 (6-20) Glucose Level 106 mg/dL (70-99) Calcium Level 6.9 mg/dL (8.5-10.1) Total Bilirubin 0.4 mg/dL (0.2-1.0) Aspartate Amino Transf (AST/SGOT) 24 U/L (15-37) Alanine Aminotransferase (ALT/SGPT) 7 U/L (16-63) Alkaline Phosphatase 111 U/L (46-116) Total Protein 4.4 g/dL (6.4-8.2) Albumin 1.3 g/dL (3.4-5.0) Albumin/Globulin Ratio 0.4 (1.0-1.7) Micro Microbiology 12/08/21 Blood Culture - Preliminary, Resulted NO GROWTH AFTER 1 DAY Objective Assessment IMPRESSION: 1. Hypoxic respiratory failure. 2. Encephalopathy. 3. Recent staphylococcal lugdunensis bacteremia. 4. Dehydration with hypernatremia. 5. Prerenal azotemia. Plan Plan of Care cont antibiotics cont supportive care SERGIO OLIVO MD Dec 11, 2021 06:58
[2021-12-11] MEDS ORDERED: ACETAMINOPHEN 650 MG SUPP.RECT. PR PRN (08:15)
--- NOTE | 2021-12-11 08:20 | PN ---
DATE: 12/11/2021 SUBJECTIVE: The patient is resting, slightly propped up in bed, in no apparent respiratory distress. He is awake, alert. On questioning him, denied any chest pain or shortness of breath. He stated he is thirsty, but not hungry. He is on room air, maintaining his oxygen saturation at 94%. He continues to be on heparin drip. PHYSICAL EXAMINATION: GENERAL: When I examined him, he was pale, not jaundiced or cyanosed. No lymphadenopathy, no thyromegaly, no jugular venous distention. No limb edema. VITAL SIGNS: His heart rate was 75, blood pressure was 153/64, temperature 97.9, respiratory rate 20 and oxygen saturation was 94% on room air. HEAD, EYES, EARS, NOSE AND THROAT: Normocephalic, atraumatic. NECK: Supple. HEART: Normal first and second heart sounds. No gallop, rub or murmur. CHEST: Showed central trachea, equal bilateral chest expansion air entry, vesicular breath sounds. I could not appreciate any crepitation or rhonchi anteriorly. ABDOMEN: Distended, soft, nontender. NEUROLOGIC: He is awake, alert, responding appropriately. All his cranial nerves are intact. He moves extremities spontaneously, although he is mostly bedbound. He has an indwelling Santos catheter. His intake was 1343, output was 590. LABORATORY DATA: As of this morning, his white cell count was down to 6500, hemoglobin 8.4, hematocrit 27, MCV 96 and platelet count of 103,000. His chemistry showed a serum sodium of 151, potassium 3.3, chloride 112, bicarbonate 31, anion gap of 8, BUN 47, creatinine 1, estimated GFR was 70 mL per minute. His glucose 106, calcium was 6.9. Total bilirubin, AST, ALT, alkaline phosphatase were normal. Total protein was 4.4, albumin was 1.3. He continues to be on heparin drip. His urine and blood cultures are negative and showed no growth after 2 days. ASSESSMENT: 1. Metabolic encephalopathy, likely multifactorial including severe hypernatremia and hypercarbia. 2. Acute on chronic hypoxic hypercapnic respiratory failure. 3. Aspiration pneumonia. 4. Non-ST segment elevation myocardial infarction. 5. Congestive heart failure, probably due to ischemic cardiomyopathy,. 6. Severe dehydration with disproportionate BUN compared to creatinine that is improving slowly. His serum sodium came down from 165 to 151. He has extreme water deficit. 7. The patient has multiple preexisting conditions include: A. Hypertension. B. Type 2 diabetes mellitus. C. Has a history of Staphylococcus lugdunensis bacteremia, treated with IV cefazolin 2 grams every 8 hours for 4 weeks. PLAN: He is DNR/DNI. I have spoken to his daughter and apparently the patient made it clear that he does not want any feeding tube. We have discussed the option of hospice before and the patient and the daughter has not accepted that. However, given his multiple comorbidities, I think the only option available if they are not willing to pursue aggressive treatment is to consider hospice and comfort care. CESAR DR: Deepthi TID: [id number]
--- NOTE | 2021-12-11 08:52 | PDOC ---
PULMONARY PROGRESS NOTES DATE: 12/11/21 TIME: 08:48 Subjective more alert on vm 35% fio2 feels better on bipap overnight Vitals Vital Signs Date Time Temp Pulse Resp B/P (MAP) Pulse Ox O2 Delivery O2 Flow Rate FiO2 12/11/21 08:25 Room Air 12/11/21 08:06 97.4 75 20 154/61 95 97.4 12/11/21 07:17 2.0 ROS: No Nausea, No Chest Pain General: Alert HEENT: Other (nc at perrl ) Lungs: Crackles Cardiovascular: S1, S2 Abdomen: Soft, Non-tender Neuro Exam: Alert Extremities: Other (edema ) Skin: Warm Labs Laboratory Tests Test 12/09/21 11:20 12/09/21 11:30 12/09/21 11:57 12/09/21 17:30 O2 Saturation 97 % (92-99) Arterial Blood pH 7.46 (7.35-7.45) Arterial Blood pCO2 at Patient Temp 40 mmHg (35-46) Arterial Blood pO2 at Patient Temp 93 mmHg (65-108) Arterial Blood HCO3 28 mmol/L (21-28) Arterial Blood Base Excess 4 mmol/L (-3-3) FiO2 40% bipap Heparin Anti-Xa Act, Unfractionated > 1.10 IU/mL (0.30-0.70) Glucose (Fingerstick) 209 mg/dL (70-99) 166 mg/dL (70-99) Test 12/09/21 18:40 12/10/21 00:20 12/10/21 00:53 12/10/21 05:36 Heparin Anti-Xa Act, Unfractionated 0.61 IU/mL (0.30-0.70) 0.24 IU/mL (0.30-0.70) Glucose (Fingerstick) 143 mg/dL (70-99) 148 mg/dL (70-99) Test 12/10/21 07:00 12/10/21 07:45 12/10/21 11:54 12/10/21 14:00 Heparin Anti-Xa Act, Unfractionated 0.74 IU/mL (0.30-0.70) 0.35 IU/mL (0.30-0.70) White Blood Count 6.9 x10^3/uL (4.0-11.0) Red Blood Count 2.75 x10^6/uL (4.30-5.70) Hemoglobin 8.3 g/dL (13.0-17.5) Hematocrit 26.6 % (39.0-53.0) Mean Corpuscular Volume 97 fL (79-100) Mean Corpuscular Hemoglobin 30 pg (25-35) Mean Corpuscular Hemoglobin Concent 31 g/dL (31-37) Red Cell Distribution Width 17.9 % (11.5-14.5) Platelet Count 102 x10^3/uL (140-400) Neutrophils (%) (Auto) 80 % (31-73) Lymphocytes (%) (Auto) 12 % (24-48) Monocytes (%) (Auto) 6 % (0-9) Eosinophils (%) (Auto) 1 % (0-3) Basophils (%) (Auto) 1 % (0-3) Neutrophils # (Auto) 5.5 x10^3/uL (1.8-7.7) Lymphocytes # (Auto) 0.8 x10^3/uL (1.0-4.8) Monocytes # (Auto) 0.4 x10^3/uL (0.0-1.1) Eosinophils # (Auto) 0.1 x10^3/uL (0.0-0.7) Basophils # (Auto) 0.1 x10^3/uL (0.0-0.2) Sodium Level 153 mmol/L (136-145) Potassium Level 2.7 mmol/L (3.5-5.1) Chloride Level 113 mmol/L (98-107) Carbon Dioxide Level 32 mmol/L (21-32) Anion Gap 8 (6-14) Blood Urea Nitrogen 54 mg/dL (8-26) Creatinine 1.2 mg/dL (0.7-1.3) Estimated GFR (Cockcroft-Gault) 57.1 BUN/Creatinine Ratio 45 (6-20) Glucose Level 171 mg/dL (70-99) Calcium Level 6.9 mg/dL (8.5-10.1) Total Bilirubin 0.5 mg/dL (0.2-1.0) Aspartate Amino Transf (AST/SGOT) 27 U/L (15-37) Alanine Aminotransferase (ALT/SGPT) 9 U/L (16-63) Alkaline Phosphatase 104 U/L (46-116) Total Protein 4.5 g/dL (6.4-8.2) Albumin 1.3 g/dL (3.4-5.0) Albumin/Globulin Ratio 0.4 (1.0-1.7) Glucose (Fingerstick) 141 mg/dL (70-99) Test 12/10/21 17:56 12/10/21 20:45 12/11/21 00:10 12/11/21 04:40 Glucose (Fingerstick) 159 mg/dL (70-99) 162 mg/dL (70-99) Heparin Anti-Xa Act, Unfractionated 0.17 IU/mL (0.30-0.70) 0.41 IU/mL (0.30-0.70) White Blood Count 6.5 x10^3/uL (4.0-11.0) Red Blood Count 2.81 x10^6/uL (4.30-5.70) Hemoglobin 8.4 g/dL (13.0-17.5) Hematocrit 27.0 % (39.0-53.0) Mean Corpuscular Volume 96 fL (79-100) Mean Corpuscular Hemoglobin 30 pg (25-35) Mean Corpuscular Hemoglobin Concent 31 g/dL (31-37) Red Cell Distribution Width 17.3 % (11.5-14.5) Platelet Count 103 x10^3/uL (140-400) Sodium Level 151 mmol/L (136-145) Potassium Level 3.3 mmol/L (3.5-5.1) Chloride Level 112 mmol/L (98-107) Carbon Dioxide Level 31 mmol/L (21-32) Anion Gap 8 (6-14) Blood Urea Nitrogen 47 mg/dL (8-26) Creatinine 1.0 mg/dL (0.7-1.3) Estimated GFR (Cockcroft-Gault) 70.5 BUN/Creatinine Ratio 47 (6-20) Glucose Level 106 mg/dL (70-99) Calcium Level 6.9 mg/dL (8.5-10.1) Total Bilirubin 0.4 mg/dL (0.2-1.0) Aspartate Amino Transf (AST/SGOT) 24 U/L (15-37) Alanine Aminotransferase (ALT/SGPT) 7 U/L (16-63) Alkaline Phosphatase 111 U/L (46-116) Total Protein 4.4 g/dL (6.4-8.2) Albumin 1.3 g/dL (3.4-5.0) Albumin/Globulin Ratio 0.4 (1.0-1.7) Laboratory Tests Test 12/10/21 11:54 12/10/21 14:00 12/10/21 17:56 12/10/21 20:45 Glucose (Fingerstick) 141 mg/dL (70-99) 159 mg/dL (70-99) Heparin Anti-Xa Act, Unfractionated 0.35 IU/mL (0.30-0.70) 0.17 IU/mL (0.30-0.70) Test 12/11/21 00:10 12/11/21 04:40 Glucose (Fingerstick) 162 mg/dL (70-99) White Blood Count 6.5 x10^3/uL (4.0-11.0) Red Blood Count 2.81 x10^6/uL (4.30-5.70) Hemoglobin 8.4 g/dL (13.0-17.5) Hematocrit 27.0 % (39.0-53.0) Mean Corpuscular Volume 96 fL (79-100) Mean Corpuscular Hemoglobin 30 pg (25-35) Mean Corpuscular Hemoglobin Concent 31 g/dL (31-37) Red Cell Distribution Width 17.3 % (11.5-14.5) Platelet Count 103 x10^3/uL (140-400) Heparin Anti-Xa Act, Unfractionated 0.41 IU/mL (0.30-0.70) Sodium Level 151 mmol/L (136-145) Potassium Level 3.3 mmol/L (3.5-5.1) Chloride Level 112 mmol/L (98-107) Carbon Dioxide Level 31 mmol/L (21-32) Anion Gap 8 (6-14) Blood Urea Nitrogen 47 mg/dL (8-26) Creatinine 1.0 mg/dL (0.7-1.3) Estimated GFR (Cockcroft-Gault) 70.5 BUN/Creatinine Ratio 47 (6-20) Glucose Level 106 mg/dL (70-99) Calcium Level 6.9 mg/dL (8.5-10.1) Total Bilirubin 0.4 mg/dL (0.2-1.0) Aspartate Amino Transf (AST/SGOT) 24 U/L (15-37) Alanine Aminotransferase (ALT/SGPT) 7 U/L (16-63) Alkaline Phosphatase 111 U/L (46-116) Total Protein 4.4 g/dL (6.4-8.2) Albumin 1.3 g/dL (3.4-5.0) Albumin/Globulin Ratio 0.4 (1.0-1.7) Medications Active Scripts Medications Dose Route/Sig Max Daily Dose Days Date Category Lorazepam 2 Mg/1 Ml Oral.conc 2 Mg PO PRN Q4HRS PRN 12/08/21 Reported Metformin Hcl 1,000 Mg Tablet 1,000 Mg PO DAILYWBKFT 30 11/10/21 Rx Aspirin Ec (Aspirin) 81 Mg Tablet.dr 81 Mg PO DAILYWBKFT 30 11/10/21 Rx Lisinopril 10 Mg Tablet 10 Mg PO DAILY 30 11/10/21 Rx Actos (Pioglitazone Hcl) 45 Mg Tablet 45 Mg PO QHS 11/02/21 Reported Amlodipine Besylate 10 Mg Tablet 10 Mg PO DAILY 11/02/21 Reported Metoprolol Succinate ( Xl ) (Metoprolol Succinate) 100 Mg Tab.er.24h 100 Mg PO DAILY 11/02/21 Reported Melatonin 3 Mg Capsule 3 Mg PO QHS 11/02/21 Reported Glipizide 10 Mg Tablet 20 Mg PO DAILY 11/02/21 Reported Atorvastatin Calcium 40 Mg Tablet 40 Mg PO HS 11/02/21 Reported Impression . IMPRESSION: 1. Acute hypoxemic hypercarbic respiratory failure secondary to aspiration pneumonia and acute on chronic diastolic congestive heart failure and non-ST elevation myocardial infarction. 2. Abnormal chest x-ray. 3. Aspiration pneumonia. 4. Acute on chronic diastolic dysfunction. 5. Hypernatremia. 6. Dehydration. 7. Dysphagia. 8. Paroxysmal atrial fibrillation. 9. Non-ST elevation myocardial infarction. 10. Diabetes mellitus. 11. History of hypertension. 12. Hypotension resolved. Plan . Updated 12/11 Patient currently on room air saturation 94% Encephalopathic Wore BiPAP last night Chest x-ray reviewed, improving Continue current support Discussed with Dr. Huber, possible palliative care/hospice PLAN AND RECOMMENDATIONS: 1. Titrate FiO2 to keep O2 saturation 90%. Avoid hyperoxygenation. is a retainer 2. Elevate head of bed. 3. Continue BiPAP prn during day cont at night. 4. Continue Zosyn. 5. Continue heparin per Cardiology. 6. elevate hob 7. Decrease D5W to 75 mL per hour. 8. Pepcid for stress ulcer prophylaxis. 9. speech eval 10. The patient is DNI/DNR. Overall, prognosis is poor. The findings and recommendations were discussed with RN. JASSON GARSIA MD Dec 11, 2021 08:52
[2021-12-11] MEDS ORDERED: POTASSIUM CHLORIDE 20MEQ 100 ML IV SCH (09:00)
[2021-12-11] MEDS: FAMOTIDINE 20 MG/2 ML VIAL IVP SCH (09:06)
--- NOTE | 2021-12-11 10:10 | NUR ---
SS following for discharge planning. SS reviewed pt chart and discussed with pt RN. Pt is currently on room air. BIPAP PRN. Pt on IV Zosyn. COVID19 negative. NPO. Pt's family not wanting PEG tube or aggressive measures. DNR. Pt is skilled rehabilitation resident from [facility], [place], ; fax [phone]. Pt's family requesting comfort measures and referral to [facility], ; fax [phone]. SS spoke with pt's daughter. Pt's daughter preferring GIP services and if pt not qualifying is requesting [facility] referrals. SS phoned and faxed referral as requested. SS will continue to follow for discharge planning.
[2021-12-11] MEDS ORDERED: NALOXONE 0.4 MG/ML VIAL. IV PRN (10:30)
[2021-12-11] MEDS ORDERED: IV NORMAL SALINE 1000ML BAG 1,000 ML IV SCH (10:30)
[2021-12-11] MEDS ORDERED: MORPHINE SULFATE 30 ML IV PRN (10:30)
[2021-12-11] MEDS ORDERED: SALIVA STIMULANT AGENT 44ML SPRAY BOTTLE. PO PRN (11:15)
--- NOTE | 2021-12-11 16:19 | NUR ---
Family requested comfort care/hospice for patient. Patient's SpO2 started to decrease, increase with WOB, and Tachycardiac. This RN updated patient's daughter. Once both of the patient's daughters was at bedside, patient peacefully. Before patient passed, MTN was called and this RN was placed on hold for several minutes. This RN hung up when patient started to declined. This RN explained to MTN when this RN called with TOD. Patient was not a donor candidate. TOD [id number], Dr. Huber, Nursing Litigation Attorney Associate, and MTN were notified.
--- NOTE | 2021-12-20 17:04 | DS ---
DATE OF DISCHARGE: 12/11/2021 SUMMARY HOSPITAL COURSE: The patient is an 86-year-old male patient, a resident at [facility], [place] in [place] who was admitted with hypoxia and shortness of breath. He was found to be only 84% on 4 liters of oxygen by nasal cannula. He had altered mental status. He was placed on nonrebreather with improvement in oxygen saturation to 90% by EMS. The patient has a history of recent hospitalization for pneumonia. Per report, he was getting cefazolin 2 grams IV every 8 hours for growth of Staphylococcus lugdunensis. Apparently, the patient has increased altered mental status over the past week and the family is currently evaluating the possibility of putting him on hospice. He is a DNR/DNI. He was extensively investigated in the Emergency Room and has had lab work and imaging studies. His lab work showed that he has severe hypernatremia with a serum sodium of 165. His troponin was elevated at 1199 and his beta natriuretic peptide was 22,777; however, his white cell count was normal, hemoglobin and hematocrit were also within normal range. He has also normal platelets. Urinalysis showed very few bacteria, 5-10 wbc's. Toxic screen was negative; however, his arterial blood gas showed a pH of 7.17, pCO2 of 92, a pO2 of 100, bicarbonate was 33 and oxygen saturation was 96% on 100%, 15 liters by nonrebreather mask. His influenza A and B as well as SARS-CoV-2 antigen rapid testing was negative. His chest x-ray showed that the patient has right upper extremity PICC line with tip terminating in the superior vena cava, has stable cardiomediastinal silhouette. He was basically treated with IV antibiotic in the form of vancomycin and Zosyn for healthcare-associated pneumonia as was hypotensive, was started on Levophed and D5W to correct his hypernatremia. He is a DNR/DNI and I have spoken to his daughter regarding overall poor prognosis. His serum sodium has come down from 165 to 151. On 12/11, he became hypoxic with increasing work of breathing and tachycardic. The nursing staff updated the patient's daughter and once both of them were at bedside, the patient peacefully. The cause of is cardiopulmonary arrest, acute on chronic hypoxic respiratory failure, aspiration pneumonia. He has also non-ST segment elevation myocardial infarction and acute systolic congestive heart failure, probably due to ischemic cardiomyopathy. JASE/PRO DR: Deepthi TID: [id number]
== END 2021-12-11 15:39 | DRG 871 ==
LOC: ER 12:13 → 1 WEST ICU 13:48
PROVIDERS: ADMIT Internal Medicine; ATTEND Internal Medicine
PROC: 5A1935Z Respiratory Ventilation, Less than 24 Consecutive Hours (ICD-10-PCS; 2021-12-08)
PROC: 0BH17EZ Insertion of Endotracheal Airway into Trachea, Via Natural or Artificial Opening (ICD-10-PCS; 2021-12-08)
PROC: 5A09357 Assistance with Respiratory Ventilation, Less than 24 Consecutive Hours, Continuous Positive Airway Pressure (ICD-10-PCS; 2021-12-09)
PROC: 5A09357 Assistance with Respiratory Ventilation, Less than 24 Consecutive Hours, Continuous Positive Airway Pressure (ICD-10-PCS; 2021-12-10)
PROC: 5A09357 Assistance with Respiratory Ventilation, Less than 24 Consecutive Hours, Continuous Positive Airway Pressure (ICD-10-PCS; principal; 2021-12-11)
DX: A41.9 Sepsis, unspecified organism (principal); I21.4 Non-ST elevation (NSTEMI) myocardial infarction; J69.0 Pneumonitis due to inhalation of food and vomit; G93.41 Metabolic encephalopathy; I50.33 Acute on chronic diastolic (congestive) heart failure; J96.21 Acute and chronic respiratory failure with hypoxia; J96.22 Acute and chronic respiratory failure with hypercapnia; E87.0 Hyperosmolality and hypernatremia; E87.1 Hypo-osmolality and hyponatremia; I45.2 Bifascicular block; D64.9 Anemia, unspecified; E78.5 Hyperlipidemia, unspecified; E86.0 Dehydration; F03.90 Unspecified dementia, unspecified severity, without behavioral disturbance, psychotic disturbance, mood disturbance, and anxiety; I11.0 Hypertensive heart disease with heart failure; I25.5 Ischemic cardiomyopathy; I48.0 Paroxysmal atrial fibrillation; M15.9 Polyosteoarthritis, unspecified; R13.10 Dysphagia, unspecified; Z51.5 Encounter for palliative care; Z66 Do not resuscitate; Z86.73 Personal history of transient ischemic attack (TIA), and cerebral infarction without residual deficits; Z87.01 Personal history of pneumonia (recurrent); Z20.822 Contact with and (suspected) exposure to COVID-19; E11.9 Type 2 diabetes mellitus without complications; I95.9 Hypotension, unspecified; Y95 Nosocomial condition; I46.9 Cardiac arrest, cause unspecified
CPT/HCPCS: 36415; 36600; 71045; 80048; 80053; 80307; 81001; 82805; 82962; 83605; 83735; 83880; 84100; 84484; 85007; 85025; 85027; 85520; 87040; 87086; 87428; 94660; 94760; 96361; 96365; 96375; J0692; J1644; J1815; J2060; J2270; J2543; J3370; J3480; J3490; J7030; J7040; J7060; U0003; 99291-25; G0378